=== PATIENT | male | born 1980 | race Caucasian/White ===

== ENCOUNTER 2018-07-16 18:22 | Emergency (ER) | payer SELFPAY ==
[~2018-07-16] VITALS: Ht 175.3 cm; Wt 79.4 kg
--- OUTSIDE RECORDS SUMMARY | 2018-07-16 18:25 | XMS REPORT | Clinical Summary ---
Author Author [facility] Organization [facility] Address Unknown Phone Unavailable Care Team Providers Care Gas Transfer Operator Name Role Phone Asked, No Pcp PCP Unavailable Allergies No Known Allergies Medications End Date Status Medication Sig Dispensed Refills Start Date 07/09/2018 acetaminophen-codeine Take 1-2 20 tablet 0 (TYLENOL WITH CODEINE #3) tablets by 9 300-30 mg per tablet mouth every 6 (six) hours as needed for moderate pain for up to 5 days. 07/11/2018 acyclovir (ZOVIRAX) 400 Take 2 70 tablet 0 MG tablet tablets (800 9 mg total) by mouth 5 (five) times a day for 7 days. 07/09/2018 methylPREDNISolone follow 21 tablet 0 (MEDROL DOSEPAK) 4 mg package 9 tablet directions 07/11/2018 sulfamethoxazole-trimetho Take 1 tablet 14 tablet 0 prim (BACTRIM DS) 800-160 by mouth 2 9 mg per tablet (two) times a day for 7 days. smx-tmp DS (BACTRIM) 800-160 mg tabs (1tab q12 D10) Active Problems Not on file Encounters Care Team Description Date Type Specialty David Bhakta MD Herpes zoster without complication (Primary Dx); Visit for wound check 07/04/2018 Emergency Emergency Medicine 07/04/2018 Travel after 07/15/2017 Social History Date Tobacco Use Types Packs/Day Years Used Never Smoker Smokeless Tobacco: Never Used Alcohol Use Drinks/Week oz/Week Comments No Alcohol Habits Answer Date Recorded How often do you have a drink containing alcohol? Never 07/04/2018 How many drinks containing alcohol do you have on Not asked a typical day when you are drinking? How often do you have six or more drinks on one Not asked occasion? Sex Assigned at Date Recorded Not on file Industry Job Start Date Occupation Not on file Not on file Not on file Travel End Travel History Travel Start No recent travel history available. Last Filed Vital Signs Time Taken Vital Sign Reading 07/04/2018 11:00 AM VAULT MANAGER Blood Pressure 126/79 07/04/2018 11:00 AM VAULT MANAGER Pulse 77 07/04/2018 11:00 AM VAULT MANAGER Temperature 37 C (98.6 F) 07/04/2018 11:00 AM VAULT MANAGER Respiratory Rate 18 07/04/2018 11:00 AM VAULT MANAGER Oxygen Saturation 100% - Inhaled Oxygen - Concentration 07/04/2018 10:56 AM VAULT MANAGER Weight 79.4 kg (175 lb) 07/04/2018 10:56 AM VAULT MANAGER Height 172.7 cm (5' 8") 07/04/2018 10:56 AM VAULT MANAGER Body Mass Index 26.61 Plan of Treatment Not on file Results Not on fileafter 07/15/2017 Advance Directives Patient has advance care planning documents on file. For more information, [facility] contact: Nickolas Brown [address] [place] [address]
--- OUTSIDE RECORDS SUMMARY | 2018-07-16 18:26 | XMS REPORT | Summary of Care ---
Author Author [facility] Organization [facility] Address Unknown Phone Unavailable Encounter RORO Lund(AARTI) [id number] Date(s): 11/13/16 - 11/13/16 [facility] [address] [place] [address]- [phone] Discharge Diagnosis: Dental cavity Discharge Diagnosis: Pain, dental Discharge Disposition: Home or Self Care Attending Physician: Justin Haas MD Vital Signs Most recent to 1 2 oldest [Reference Range]: Height 175.26 cm (11/13/16 6:30 PM) Temperature Oral 98.9 DegF 98.6 DegF [96.4-99.1 DegF] (11/13/16 7:21 PM) (11/13/16 6:30 PM) Blood Pressure 154/97 mmHg [90-140/60-90 mmHg] *HI* (11/13/16 6:30 PM) Systolic Blood 158 mmHg Pressure [90-140 *HI* mmHg] (11/13/16 7:21 PM) Diastolic Blood 94 mmHg Pressure [60-90 *HI* mmHg] (11/13/16 7:21 PM) Respiratory Rate 18 BRMIN 16 BRMIN [14-20 BRMIN] (11/13/16 7:21 PM) (11/13/16 6:30 PM) Peripheral Pulse 80 bpm 78 bpm Rate [60-100 bpm] (11/13/16 7:21 PM) (11/13/16 6:30 PM) Weight 72.727 kg (11/13/16 6:30 PM) Body Mass Index 23.68 m2 (11/13/16 6:30 PM) Problem List No data available for this section Allergies, Adverse Reactions, Alerts Substance Reaction Severity Status NKDA Active Medications [place] 10/325 oral tablet 1 tab, Route: PO, Drug Form: TAB, Dosing Weight 72.727, kg, ONCE, Start date: 18:49:00 CDT, Stop date: 11/13/16 18:49:00 CDT Notes: Do not exceed 4gm/day of acetaminophen. (Same as: [place] 325/10) Start Date: 11/13/16 Stop Date: 11/13/16 Status: Completed penicillin V potassium 500 mg oral tablet 500 mg=1 tab, PO, Q6H, X 7 day, # 28 tab, 0 Refill(s) Start Date: 11/13/16 Stop Date: 11/20/16 Status: Ordered Tylenol with Codeine #3 oral tablet 1 - 2 tab, PO, Q4H, PRN Pain, X 5 day, # 24 tab, 0 Refill(s) Start Date: 11/13/16 Stop Date: 11/18/16 Status: Ordered Zofran ODT 4 mg, 1 tab, Route: PO, Drug form: TABDIS, ONCE, Dosing Weight 72.727, kg, Prior ity: STAT, Start date: 11/13/16 18:50:00 CDT, Stop date: 11/13/16 18:50:00 CDT Notes: (Same as: Zofran ODT) Start Date: 11/13/16 Stop Date: 11/13/16 Status: Completed Results RAPID Most recent to 1 oldest [Reference Range]: Grp A Strep Scr Negative [Negative] (11/13/16 7:13 PM) VIRAL - SEROLOGY Most recent to 1 oldest [Reference Range]: Influ A [Negative] Negative (11/13/16 7:13 PM) Influ B [Negative] Negative (11/13/16 7:13 PM) Immunizations No data available for this section Procedures No data available for this section Social History Social History Type Response Smoking Status Never smoker; Exposure to Tobacco Smoke None; Cigarette Smoking Last 365 Days No; Reg Smoking Cessation Counseling No Assessment and Plan No data available for this section
--- OUTSIDE RECORDS SUMMARY | 2018-07-16 18:26 | XMS REPORT | Continuity of Care Document ---
Author Author [facility] Address Unknown Phone Unavailable Problems Problem Status Onset Date Classification Date Reported Comments Source Discharge Diagnosis: Acute lumbar myofascial strain 06/01/2017 06/04/2017 [facility] LOWER BACK PAIN Active 06/01/2017 [facility] Discharge Diagnosis: Dental cavity 11/13/2016 11/16/2016 [facility] Discharge Diagnosis: Pain, dental 11/13/2016 11/16/2016 [facility] CP/THROAT PAIN Active 11/13/2016 [facility] PANCREATIC MASS Active 03/18/2012 [facility] CHEST PAIN/ FLANK PAIN Active 03/03/2012 [facility] Medications Medication Details Route Status Patient Instructions Ordering Provider Order Date Source Motrin 600 mg oral tablet 600 mg=1 tab, PO, Q6H, PRN Pain, take with food, X 5 day, # 20 tab, 0 Refill(s) Active 06/01/2017 [facility] tramadol hydrochloride 50 MG Oral Tablet [Ultram] 50 mg=1 tab, PO, Q4H, PRN pain, No driving while under the influence of this medication, X 5 day, # 30 tab, 0 Refill(s) Active 06/01/2017 [facility] {21 (Methylprednisolone 4 MG Oral Tablet [Medrol]) } Pack [Medrol Dosepak] See Instructions, PO, Take by mouth as directed on label., # 1 Pack, 0 Refill(s) Active 06/01/2017 [facility] Ketorolac 60 mg, Route: IM, Drug form: INJ, ONCE, Dosing Weight 75, kg, Priority: STAT, Start date: 06/01/17 15:31:00 SYSTEMS PROGRAM MANAGER, Stop date: 06/01/17 15:31:00 SYSTEMS PROGRAM MANAGER Inactive 06/01/2017 [facility] Acetaminophen 300 MG / Codeine Phosphate 30 MG Oral Tablet [Tylenol with Codeine #3] 1 - 2 tab, PO, Q4H, PRN Pain, X 5 day, # 24 tab, 0 Refill(s) Active 11/14/2016 [facility] Penicillin V Potassium 500 MG Oral Tablet 500 mg=1 tab, PO, Q6H, X 7 day, # 28 tab, 0 Refill(s) Active 11/14/2016 [facility] Zofran ODT 4 mg, 1 tab, Route: PO, Drug form: TABDIS, ONCE, Dosing Weight 72.727, kg, Priority: STAT, Start date: 11/13/16 18:50:00 CDT, Stop date: 11/13/16 18:50:00 CDTNotes: (Same as: Zofran ODT) Inactive 11/13/2016 [facility] Acetaminophen 325 MG / Hydrocodone Bitartrate 10 MG Oral Tablet [[place] 10/325] 1 tab, Route: PO, Drug Form: TAB, Dosing Weight 72.727, kg, ONCE, Start date: 11/13/16 18:49:00 CDT, Stop date: 11/13/16 18:49:00 CDTNotes: Do not exceed 4gm/day of acetaminophen. (Same as: [place] 325/10) Inactive 11/13/2016 [facility] Phenergan 12.5 mg oral tablet 12.5 mg, 1 tab, PO, Q4H, PRN, 30 tab, Nausea & Vomiting, Substitution Allowed, TAB PO Active [place] 03/03/2012 [facility] [place] 7.5/325 oral tablet 1-2 tab, PO, Q4-6H, PRN, 30 tab, Pain, Substitution Allowed, Maintenance PO Active [place] 03/03/2012 [facility] Phenergan 12.5 mg oral tablet 12.5 mg, 1 tab, PO, Q4H, PRN, 60 tab, Nausea & Vomiting, Substitution Allowed, TAB PO No Longer Active [place] 03/03/2012 [facility] [place] 7.5/325 oral tablet 1-2 tab, PO, Q4-6H, PRN, 30 tab, Pain, Substitution Allowed, Maintenance PO No Longer Active [place] 03/03/2012 [facility] Phenergan 12.5 mg, Route: IVPB, ONCE, Dosing Weight 69.091, kg, Priority: STAT, Start date: 03/03/12 16:24:00, Stop date: 03/03/12 16:24:00 IVPB No Longer Active [place] 03/03/2012 [facility] morphine Sulfate 4 mg, Route: IVP, ONCE, Dosing Weight 69.091, kg, Priority: STAT, Start date: 03/03/12 16:23:00, Stop date: 03/03/12 16:23:00 IVP No Longer Active [place] 03/03/2012 [facility] hydromorphone 1 mg, Route: IV, ONCE, Dosing Weight 69.091, kg, Start date: 03/03/12 15:15:00, Stop date: 03/03/12 15:15:00 IV No Longer Active [place] 03/03/2012 [facility] ondansetron 4 mg, 2 mL, Route: IVP, Drug form: INJ, ONCE, Dosing Weight 69.091, kg, Priority: STAT, Start date: 03/03/12 13:12:00, Stop date: 03/03/12 13:12:00 IVP No Longer Active [place] 03/03/2012 [facility] famotidine 20 mg, 2 mL, Route: IVP, Drug form: INJ, ONCE, Dosing Weight 69.091, kg, Priority: STAT, Start date: 03/03/12 13:12:00, Stop date: 03/03/12 13:12:00 IVP No Longer Active [place] 03/03/2012 [facility] morphine Sulfate 4 mg, 2 mL, Route: IVP, Drug form: INJ, ONCE, Dosing Weight 69.091, kg, Priority: STAT, Start date: 03/03/12 13:12:00, Stop date: 03/03/12 13:12:00 IVP No Longer Active [place] 03/03/2012 [facility] Saline Flush 0.9% 5 ml, Route: IVP, Drug Form: INJ, Dosing Weight 69.091, kg, PRN, PRN Line Flush, Start date: 03/03/12 13:12:00, Duration: 24 hr, Stop date: 03/04/12 13:11:00 IVP No Longer Active [place] 03/03/2012 [facility] Allergies, Adverse Reactions, Alerts Substance Category Reaction Severity Reaction type Status Date Reported Comments Source Immunizations Immunization Date Given Site Status Last Updated Comments Source Results Order Name Results Value Reference Range Date Interpretation Comments Source RAPID Grp A Strep Scr Negative (11/13/16 7:13 PM) Negative 11/14/2016 [facility] VIRAL - SEROLOGY Influ A Negative (11/13/16 7:13 PM) Negative 11/14/2016 [facility] VIRAL - SEROLOGY Influ B Negative (11/13/16 7:13 PM) Negative 11/14/2016 [facility] CHEMISTRY Lipase Lvl 181 unit/L 73 - 393 03/03/2012 Normal [facility] CHEMISTRY AGAP 11.8 meq/L 10.0 - 20.0 03/03/2012 Normal [facility] CHEMISTRY B/C Ratio 11 6 - 25 03/03/2012 Normal [facility] CHEMISTRY A/G Ratio 1.2 0.7 - 1.6 03/03/2012 Normal [facility] CHEMISTRY Globulin 3.0 g/dL 2.0 - 4.0 03/03/2012 Normal [facility] CHEMISTRY Chloride Lvl 109 meq/L 95 - 109 03/03/2012 Normal [facility] CHEMISTRY Potassium Lvl 3.8 meq/L 3.5 - 5.1 03/03/2012 Normal [facility] CHEMISTRY CO2 27 meq/L 24 - 32 03/03/2012 Normal [facility] CHEMISTRY Albumin Lvl 3.6 g/dL 3.5 - 5.0 03/03/2012 Normal [facility] CHEMISTRY Calcium Lvl 8.5 mg/dL 8.5 - 10.5 03/03/2012 Normal [facility] CHEMISTRY Sodium Lvl 144 meq/L 135 - 145 03/03/2012 Normal [facility] CHEMISTRY Creatinine Lvl 1.0 mg/dL 0.5 - 1.4 03/03/2012 Normal [facility] CHEMISTRY BUN 11 mg/dL 7 - 22 03/03/2012 Normal [facility] CHEMISTRY Glucose Lvl 100 mg/dL 70 - 99 03/03/2012 [place] 1Interpretive Data: Adult reference range values reflect the clinical guidelines of the [place] [employer]. [facility] CHEMISTRY ALT 26 unit/L 0 - 65 03/03/2012 Normal [facility] CHEMISTRY Total Protein 6.6 g/dL 6.4 - 8.4 03/03/2012 Normal [facility] CHEMISTRY AST 9 unit/L 0 - 37 03/03/2012 Normal [facility] CHEMISTRY Alk Phos 61 unit/L 39 - 136 03/03/2012 Normal [facility] CHEMISTRY Bili Total 0.1 mg/dL 0.2 - 1.3 03/03/2012 LOW [facility] HEMATOLOGY MCHC 33.4 g/dL 32.0 - 36.0 03/03/2012 Normal [facility] HEMATOLOGY RDW 12.1 % 11.5 - 14.5 03/03/2012 Normal [facility] HEMATOLOGY Platelet 329 K/CMM 133 - 450 03/03/2012 Normal [facility] HEMATOLOGY MPV 8.0 fL 7.4 - 10.4 03/03/2012 Normal [facility] HEMATOLOGY MCH 33.2 pg 27.0 - 31.0 03/03/2012 [facility] HEMATOLOGY MCV 99.4 fL 80.0 - 94.0 03/03/2012 [facility] HEMATOLOGY Hgb 13.2 g/dL 14.0 - 18.0 03/03/2012 LOW [facility] HEMATOLOGY Hct 39.6 % 42.0 - 54.0 03/03/2012 LOW [facility] HEMATOLOGY RBC 3.98 M/CMM 4.70 - 6.10 03/03/2012 [facility] HEMATOLOGY WBC 10.5 K/CMM 3.7 - 10.4 03/03/2012 [facility] HEMATOLOGY Lymphocytes # 4.6 K/CMM 1.0 - 5.5 03/03/2012 Normal [facility] HEMATOLOGY Eosinophils 1.3 % 0.0 - 4.0 03/03/2012 Normal [facility] HEMATOLOGY Segs-Bands # 5.0 K/CMM 1.5 - 8.1 03/03/2012 Normal [facility] HEMATOLOGY Basophils 0.7 % 0.0 - 1.0 03/03/2012 Normal [facility] HEMATOLOGY Lymphocytes 44.0 % 20.0 - 40.0 03/03/2012 [facility] HEMATOLOGY Segs 47.3 % 45.0 - 75.0 03/03/2012 Normal [facility] HEMATOLOGY Monocytes 6.7 % 2.0 - 12.0 03/03/2012 Normal [facility] HEMATOLOGY Monocytes # 0.7 K/CMM 0.0 - 0.8 03/03/2012 Normal [facility] HEMATOLOGY Eosinophils # 0.1 K/CMM 0.0 - 0.5 03/03/2012 Normal [facility] HEMATOLOGY Basophils # 0.1 K/CMM 0.0 - 0.2 03/03/2012 [facility] URINALYSIS UA Urobilinogen <=1.0 mg/dL
*NA*
(03/03/2012 13:13:00) <sup> </sup> 0.1 - 1.0 03/03/2012 [facility] URINALYSIS UA Color Ltyellow 03/03/2012 [facility] URINALYSIS UA Sq Epi None Seen 03/03/2012 [facility] URINALYSIS UA WBC 17 /HPF 0 - 5 03/03/2012 HI [facility] URINALYSIS UA RBC 15 /HPF 0 - 2 03/03/2012 HI [facility] URINALYSIS UA Blood Large *ABN* (03/03/2012 13:13:00) Negative 03/03/2012 ABN [facility] URINALYSIS UA Nitrite Negative (03/03/2012 13:13:00) Negative 03/03/2012 Normal [facility] URINALYSIS UA Leuk Est Trace *ABN* (03/03/2012 13:13:00) Negative 03/03/2012 ABN [facility] URINALYSIS UA Ketones Negative mg/dL *NA* (03/03/2012 13:13:00) Negative 03/03/2012 NA [facility] URINALYSIS UA Bili Negative *NA* (03/03/2012 13:13:00) Negative 03/03/2012 NA [facility] URINALYSIS UA Spec Grav 1.013 <=1.030 03/03/2012 Normal [facility] URINALYSIS UA Turbidity Clear (03/03/2012 13:13:00) Clear 03/03/2012 Normal [facility] URINALYSIS UA pH 5.0 5.0 - 8.0 03/03/2012 Normal [facility] URINALYSIS UA Protein Negative mg/dL (03/03/2012 13:13:00) Negative 03/03/2012 Normal [facility] URINALYSIS UA Glucose Negative mg/dL *NA* (03/03/2012 13:13:00) Negative 03/03/2012 NA [facility] Vital Signs Vital Sign Value Date Comments Source Respitory Rate 17 06/01/2017 [facility] Heart Rate 82 06/01/2017 [facility] Systolic (mm Hg) 135 06/01/2017 [facility] Diastolic (mm Hg) 85 06/01/2017 [facility] Heart Rate 74 06/01/2017 [facility] Respitory Rate 18 06/01/2017 [facility] Systolic (mm Hg) 115 06/01/2017 [facility] Diastolic (mm Hg) 75 06/01/2017 [facility] Temperature Oral (F) 98.3 F 06/01/2017 [facility] Height 175.26 cm 06/01/2017 [facility] Weight 75 06/01/2017 [facility] BMI Calculated 24.42 06/01/2017 [facility] Diastolic (mm Hg) 94 11/14/2016 [facility] Respitory Rate 18 11/14/2016 [facility] Systolic (mm Hg) 158 11/14/2016 [facility] Temperature Oral (F) 98.9 F 11/14/2016 [facility] Heart Rate 80 11/14/2016 [facility] BMI Calculated 23.68 11/13/2016 [facility] Weight 72.727 11/13/2016 [facility] Heart Rate 78 11/13/2016 [facility] Height 175.26 cm 11/13/2016 [facility] Temperature Oral (F) 98.6 F 11/13/2016 [facility] Respitory Rate 16 11/13/2016 [facility] Systolic (mm Hg) 154 11/13/2016 [facility] Diastolic (mm Hg) 97 11/13/2016 [facility] Weight 69.091 03/03/2012 [facility] Height 170.18 cm 03/03/2012 [facility] Encounters Location Location Details Encounter Type Encounter Number Reason For Visit Attending Provider ADM Date DC Date Status Source [facility] Emergency [id number] CHEST PAIN/ FLANK 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
--- OUTSIDE RECORDS SUMMARY | 2018-07-16 18:26 | XMS REPORT | CCD ---
Author Author Auto Generated Organization [facility] Address Unknown Phone Unavailable Care Team Providers Care Honing Machine Operator Semiautomatic Name Role Phone Katie Todd CP Allergies, Adverse Reactions, Alerts Substance Reaction Status NKDA Active Medications Medication Instructions Start Date End Date Status Phenergan 12.5 mg 12.5 mg, 1 tab, PO, Q4H, PRN, 60 03/03/2012 03/03/2012 Discontinued oral tablet tab, Nausea & Vomiting, Substitution Allowed, TAB Phenergan 12.5 mg 12.5 mg, 1 tab, PO, Q4H, PRN, 30 03/03/2012 Ordered oral tablet tab, Nausea & Vomiting, Substitution Allowed, TAB [place] 7.5/325 oral 1-2 tab, PO, Q4-6H, PRN, 30 tab, 03/03/2012 03/08/2012 Ordered tablet Pain, Substitution Allowed, Maintenance [place] 7.5/325 oral 1-2 tab, PO, Q4-6H, PRN, 30 tab, 03/03/2012 03/03/2012 Discontinued tablet Pain, Substitution Allowed, Maintenance hydromorphone 1 mg, Route: IV, ONCE, Dosing 03/03/2012 03/03/2012 Completed Weight 69.091, kg, Start date: 03/03/12 15:15:00, Stop date: 03/03/12 15:15:00 Phenergan 12.5 mg, Route: IVPB, ONCE, Dosing 03/03/2012 03/03/2012 Completed Weight 69.091, kg, Priority: STAT, Start date: 03/03/12 16:24:00, Stop date: 03/03/12 16:24:00 morphine Sulfate 4 mg, Route: IVP, ONCE, Dosing 03/03/2012 03/03/2012 Completed Weight 69.091, kg, Priority: STAT, Start date: 03/03/12 16:23:00, Stop date: 03/03/12 16:23:00 ondansetron 4 mg, 2 mL, Route: IVP, Drug form: 03/03/2012 03/03/2012 Completed INJ, ONCE, Dosing Weight 69.091, kg, Priority: STAT, Start date: 03/03/12 13:12:00, Stop date: 03/03/12 13:12:00 famotidine 20 mg, 2 mL, Route: IVP, Drug form: 03/03/2012 03/03/2012 Completed INJ, ONCE, Dosing Weight 69.091, kg, Priority: STAT, Start date: 03/03/12 13:12:00, Stop date: 03/03/12 13:12:00 morphine Sulfate 4 mg, 2 mL, Route: IVP, Drug form: 03/03/2012 03/03/2012 Completed INJ, ONCE, Dosing Weight 69.091, kg, Priority: STAT, Start date: 03/03/12 13:12:00, Stop date: 03/03/12 13:12:00 Saline Flush 0.9% 5 ml, Route: IVP, Drug Form: INJ, 03/03/2012 03/04/2012 Discontinued Dosing Weight 69.091, kg, PRN, PRN Line Flush, Start date: 03/03/12 13:12:00, Duration: 24 hr, Stop date: 03/04/12 13:11:00 Vital Signs Most recent to oldest [Reference Range]: 1 Height 170.18 cm (03/03/2012 12:04:00) Weight 69.091 kg (03/03/2012 12:04:00) Results URINALYSIS Most recent to oldest [Reference Range]: 1 UA Turbidity [Clear] Clear (03/03/2012 13:13:00) UA Color Ltyellow *NA* (03/03/2012 13:13:00) UA pH [5.0-8.0] 5.0 (03/03/2012 13:13:00) UA Spec Grav [<=1.030] 1.013 (03/03/2012 13:13:00) UA Glucose [Negative mg/dL] Negative mg/dL *NA* (03/03/2012 13:13:00) UA Blood [Negative] Large *ABN* (03/03/2012 13:13:00) UA Ketones [Negative mg/dL] Negative mg/dL *NA* (03/03/2012 13:13:00) UA Protein [Negative mg/dL] Negative mg/dL (03/03/2012 13:13:00) UA Urobilinogen [0.1-1.0 mg/dL] <=1.0 mg/dL *NA* (03/03/2012 13:13:00) UA Bili [Negative] Negative *NA* (03/03/2012 13:13:00) UA Leuk Est [Negative] Trace *ABN* (03/03/2012 13:13:00) UA Nitrite [Negative] Negative (03/03/2012 13:13:00) UA WBC [0-5 /HPF] 17 /HPF *HI* (03/03/2012 13:13:00) UA RBC [0-2 /HPF] 15 /HPF *HI* (03/03/2012 13:13:00) UA Sq Epi None Seen *NA* (03/03/2012 13:13:00) CHEMISTRY Most recent to oldest [Reference Range]: 1 Sodium Lvl [135-145 mEq/L] 144 mEq/L (03/03/2012 13:13:00) Potassium Lvl [3.5-5.1 mEq/L] 3.8 mEq/L (03/03/2012 13:13:00) Chloride Lvl [95-109 mEq/L] 109 mEq/L (03/03/2012 13:13:00) CO2 [24-32 mEq/L] 27 mEq/L (03/03/2012 13:13:00) AGAP [10.0-20.0 mEq/L] 11.8 mEq/L (03/03/2012 13:13:00) Creatinine Lvl [0.5-1.4 mg/dL] 1.0 mg/dL (03/03/2012 13:13:00) BUN [7-22 mg/dL] 11 mg/dL (03/03/2012 13:13:00) B/C Ratio [6-25] 11 (03/03/2012 13:13:00) Glucose Lvl [70-99 mg/dL] 100 mg/dL 1 *HI* (03/03/2012 13:13:00) Total Protein [6.4-8.4 g/dL] 6.6 g/dL (03/03/2012 13:13:00) Albumin Lvl [3.5-5.0 g/dL] 3.6 g/dL (03/03/2012 13:13:00) Globulin [2.0-4.0 g/dL] 3.0 g/dL (03/03/2012 13:13:00) A/G Ratio [0.7-1.6] 1.2 (03/03/2012 13:13:00) Calcium Lvl [8.5-10.5 mg/dL] 8.5 mg/dL (03/03/2012 13:13:00) ALT [0-65 unit/L] 26 unit/L (03/03/2012 13:13:00) AST [0-37 unit/L] 9 unit/L (03/03/2012 13:13:00) Alk Phos [39-136 unit/L] 61 unit/L (03/03/2012 13:13:00) Bili Total [0.2-1.3 mg/dL] 0.1 mg/dL *LOW* (03/03/2012 13:13:00) Lipase Lvl [73-393 unit/L] 181 unit/L (03/03/2012 13:13:00) 1Interpretive Data: Adult reference range values reflect the clinical guidelines of the [place] [employer]. HEMATOLOGY Most recent to oldest [Reference Range]: 1 WBC [3.7-10.4 K/CMM] 10.5 K/CMM *HI* (03/03/2012 13:13:00) RBC [4.70-6.10 M/CMM] 3.98 M/CMM *LOW* (03/03/2012 13:13:00) Hgb [14.0-18.0 g/dL] 13.2 g/dL *LOW* (03/03/2012 13:13:00) Hct [42.0-54.0 %] 39.6 % *LOW* (03/03/2012 13:13:00) MCV [80.0-94.0 fL] 99.4 fL *HI* (03/03/2012 13:13:00) MCH [27.0-31.0 pg] 33.2 pg *HI* (03/03/2012 13:13:00) MCHC [32.0-36.0 g/dL] 33.4 g/dL (03/03/2012 13:13:00) RDW [11.5-14.5 %] 12.1 % (03/03/2012 13:13:00) Platelet [133-450 K/CMM] 329 K/CMM (03/03/2012 13:13:00) MPV [7.4-10.4 fL] 8.0 fL (03/03/2012 13:13:00) Segs [45.0-75.0 %] 47.3 % (03/03/2012 13:13:00) Lymphocytes [20.0-40.0 %] 44.0 % *HI* (03/03/2012 13:13:00) Monocytes [2.0-12.0 %] 6.7 % (03/03/2012 13:13:00) Eosinophils [0.0-4.0 %] 1.3 % (03/03/2012 13:13:00) Basophils [0.0-1.0 %] 0.7 % (03/03/2012 13:13:00) Segs-Bands # [1.5-8.1 K/CMM] 5.0 K/CMM (03/03/2012 13:13:00) Lymphocytes # [1.0-5.5 K/CMM] 4.6 K/CMM (03/03/2012 13:13:00) Monocytes # [0.0-0.8 K/CMM] 0.7 K/CMM (03/03/2012 13:13:00) Eosinophils # [0.0-0.5 K/CMM] 0.1 K/CMM (03/03/2012 13:13:00) Basophils # [0.0-0.2 K/CMM] 0.1 K/CMM (03/03/2012 13:13:00)
--- OUTSIDE RECORDS SUMMARY | 2018-07-16 18:26 | XMS REPORT | Summary of Care ---
Author Author [facility] Organization [facility] Address Unknown Phone Unavailable Encounter RORO Lund(AARTI) [id number] Date(s): 06/01/17 - 06/01/17 [facility] [address] [place] [address]- [phone] Discharge Diagnosis: Acute lumbar myofascial strain Discharge Disposition: Home or Self Care Attending Physician: Yaw Black DO Vital Signs Most recent to 1 2 oldest [Reference Range]: Height 175.26 cm (06/01/17 11:48 AM) Temperature Oral 98.3 DegF [96.4-99.1 DegF] (06/01/17 11:48 AM) Blood Pressure 135/85 mmHg 115/75 mmHg [90-140/60-90 mmHg] (06/01/17 3:38 PM) (06/01/17 11:48 AM) Respiratory Rate 17 BRMIN 18 BRMIN [14-20 BRMIN] (06/01/17 3:38 PM) (06/01/17 11:48 AM) Peripheral Pulse 82 bpm 74 bpm Rate [60-100 bpm] (06/01/17 3:38 PM) (06/01/17 11:48 AM) Weight 75 kg (06/01/17 11:48 AM) Body Mass Index 24.42 m2 (06/01/17 11:48 AM) Problem List No data available for this section Allergies, Adverse Reactions, Alerts Substance Reaction Severity Status NKDA Active Medications ketOROLAC 60 mg, Route: IM, Drug form: INJ, ONCE, Dosing Weight 75, kg, Priority: STAT, St art date: 06/01/17 15:31:00 ANALYTICAL CONSULTANT, Stop date: 06/01/17 15:31:00 ANALYTICAL CONSULTANT Start Date: 06/01/17 Stop Date: 06/01/17 Status: Completed Medrol Dosepak 4 mg oral tablet See Instructions, PO, Take by mouth as directed on label., # 1 Pack, 0 Refill(s) Start Date: 06/01/17 Stop Date: 06/07/17 Status: Ordered Motrin 600 mg oral tablet 600 mg=1 tab, PO, Q6H, PRN Pain, take with food, X 5 day, # 20 tab, 0 Refill(s) Start Date: 06/01/17 Stop Date: 06/06/17 Status: Ordered Ultram 50 mg oral tablet 50 mg=1 tab, PO, Q4H, PRN pain, No driving while under the influence of this med ication, X 5 day, # 30 tab, 0 Refill(s) Start Date: 06/01/17 Stop Date: 06/06/17 Status: Ordered Results No data available for this section Immunizations No data available for this section Procedures No data available for this section Social History Social History Type Response Smoking Status Never smoker; Exposure to Tobacco Smoke None; Cigarette Smoking Last 365 Days No; Reg Smoking Cessation Counseling No Assessment and Plan No data available for this section
[2018-07-16 19:03] VITALS: BP 125/85
== END 2018-07-16 19:12 | disposition home or self-care (01) ==
LOC: ER 18:22
DX: R10.30 Lower abdominal pain, unspecified (principal); L04.1 Acute lymphadenitis of trunk; L98.419 Non-pressure chronic ulcer of buttock with unspecified severity
CPT/HCPCS: 99282

== ENCOUNTER 2019-12-25 16:09 | Emergency (ER) | payer SELFPAY ==
[~2019-12-25] VITALS: Ht 175.3 cm; Wt 79.4 kg
[2019-12-25] MEDS ORDERED: SODIUM CHLORIDE 0.9% 1000ML 1,000 ML IV STA (16:20)
--- NOTE | 2019-12-25 16:23 | Emergency Department Note ---
History of Present Illnes History of Present Illness History of Present Illness This is a 39 year old male with 5 day h/o of diarrheal illness with epigastric pain. Denies f/c/n/v. Reports subtle cough and malaise . Historian: Patient Onset (how long ago): day(s) (5) Location: epigastric Radiation: Reports abdomen Severity: moderate Onset quality: gradual Duration (how long): day(s) (5) Timing of current episode: constant Progression: worsening Chronicity: recurrent Relieving factors: none Exacerbating factors: none Associated symptoms: Reports cough, Reports malaise Treatments prior to arrival: none Past Medical/Family History Physician Review I have reviewed the patient's past medical and family history. Any updates have been documented here. Past Medical History Recent Fever: No Clinical Suspicion of Infectio: Yes New/Unexplained Change in Ment: No Past Medical History: Kidney Stones, GERD Past Surgical History: None Social History Smoking Cessation: Never Smoker Alcohol Use: None Any Illegal Drug Use: No Other Last Tetanus: <10 YRS Review of Systems Review of Systems Constitutional: Reports malaise EENTM: Reports no symptoms Cardiovascular: Reports no symptoms Respiratory: Reports cough Gastrointestinal: Reports diarrhea Genitourinary: Reports no symptoms Musculoskeletal: Reports no symptoms Integumentary: Reports no symptoms Neurological: Reports no symptoms Psychological: Reports no symptoms Endocrine: Reports no symptoms Hematological/Lymphatic: Reports no symptoms Physical Exam Related Data Allergies: Coded Allergies: No Known Allergies (Unverified , 07/16/18) Triage Vital Signs Vital Signs Date Time Temp Pulse Resp B/P (MAP) Pulse Ox O2 Delivery O2 Flow Rate FiO2 12/25/19 16:26 98.2 92 21 124/87 97 Room Air Vital signs reviewed: Yes Physical Exam CONSTITUTIONAL Constitutional: Present well-developed, Present well-nourished HENT HENT: Present normocephalic, Present atraumatic, Present oropharynx clear/moist, Present nose normal HENT L/R: Present left ext ear normal, Present right ext ear normal EYES Eyes: Reports PERRL, Reports conjunctivae normal NECK Neck: Present ROM normal PULMONARY Pulmonary: Present effort normal, Present breath sounds normal CARDIOVASCULAR Cardiovascular: Present regular rhythm, Present heart sounds normal, Present capillary refill normal, Present normal rate GASTROINTESTINAL Abdominal: Present soft, Present tender (epigastric) GENITOURINARY Genitourinary: Present exam deferred SKIN Skin: Present warm, Present dry MUSCULOSKELETAL Musculoskeletal: Present ROM normal NEUROLOGICAL Neurological: Present alert, Present oriented x 3, Present no gross motor or sensory deficits PSYCHOLOGICAL Psychological: Present mood/affect normal, Present judgement normal Results Laboratory Lab results reviewed: Yes Laboratory comments Laboratory Tests Test 12/25/19 17:09 12/25/19 16:31 Urine Color Yellow (YELLOW) Urine Clarity Sl cloudy (CLEAR) Urine pH 6 (5 - 7) Urine Specific [place] 1.030 (1.010-1.025) Urine Protein Negative (NEGATIVE) Urine Glucose (UA) Negative (NEGATIVE) Urine Ketones Negative (NEGATIVE) Urine Blood Negative (NEGATIVE) Urine Nitrite Negative (NEGATIVE) Urine Bilirubin Negative (NEGATIVE) Urine Urobilinogen 0.2 mg/dL (0.2 - 1) Urine Leukocyte Esterase Negative (NEGATIVE) Urine RBC None /HPF (0-5) Urine WBC None /HPF (0-5) Urine Epithelial Cells None /LPF (NONE) Urine Bacteria Few /HPF (NONE) Urine Mucus Moderate (RARE) Urine Opiates Screen Negative (NEGATIVE) Urine Methadone Screen Negative (NEGATIVE) Urine Barbiturates Screen Negative (NEGATIVE) Urine Phencyclidine Screen Negative (NEGATIVE) Urine Amphetamines Screen Negative (NEGATIVE) Urine Methamphetamines Screen Negative (NEGATIVE) Urine Benzodiazepines Screen Negative (NEGATIVE) Urine Cocaine Screen Negative (NEGATIVE) Urine Cannabinoids Screen Negative (NEGATIVE) White Blood Count 10.56 x10e3/uL (4.8-10.8) Red Blood Count 5.27 x10e6/uL (4.3-5.7) Hemoglobin 16.1 g/dL (14.0-18.0) Hematocrit 48.8 % (38.2-49.6) Mean Corpuscular Volume 92.6 fL (81-99) Mean Corpuscular Hemoglobin 30.6 pg (28-32) Mean Corpuscular Hemoglobin Concent 33.0 g/dL (31-35) Red Cell Distribution Width 12.4 % (11.7-14.4) Platelet Count 346 x10e3/uL (140-360) Neutrophils (%) (Auto) 62.6 % (38.7-80.0) Lymphocytes (%) (Auto) 27.0 % (18.0-39.1) Monocytes (%) (Auto) 7.8 % (4.4-11.3) Eosinophils (%) (Auto) 1.2 % (0.0-6.0) Basophils (%) (Auto) 0.8 % (0.0-1.0) Neutrophils # (Auto) 6.6 (2.1-6.9) Lymphocytes # (Auto) 2.9 (1.0-3.2) Monocytes # (Auto) 0.8 (0.2-0.8) Eosinophils # (Auto) 0.1 (0.0-0.4) Basophils # (Auto) 0.1 (0.0-0.1) Absolute Immature Granulocyte (auto 0.06 x10e3/uL (0-0.1) Sodium Level 142 mmol/L (136-145) Potassium Level 3.7 mmol/L (3.5-5.1) Chloride Level 107 mmol/L (98-107) Carbon Dioxide Level 27 mmol/L (22-29) Anion Gap 11.7 mmol/L (8-16) Blood Urea Nitrogen 15 mg/dL (7-26) Creatinine 1.02 mg/dL (0.72-1.25) Estimat Glomerular Filtration Rate > 60 ML/MIN (60-) BUN/Creatinine Ratio 15 (6-25) Glucose Level 102 mg/dL (74-118) Calcium Level 9.7 mg/dL (8.4-10.2) Total Bilirubin 0.5 mg/dL (0.2-1.2) Aspartate Amino Transf (AST/SGOT) 20 IU/L (5-34) Alanine Aminotransferase (ALT/SGPT) 41 IU/L (0-55) Alkaline Phosphatase 61 IU/L (40-150) Creatine Kinase 163 IU/L (30-200) Creatine Kinase MB 0.70 ng/mL (0-5.0) Troponin I < 0.001 ng/mL (0-0.300) B-Type Natriuretic Peptide 19.6 pg/mL (0-100) Total Protein 7.6 g/dL (6.5-8.1) Albumin 3.9 g/dL (3.5-5.0) Globulin 3.7 g/dL (2.3-3.5) Albumin/Globulin Ratio 1.1 (0.8-2.0) Lipase 45 U/L (8-78) Imaging Imaging results reviewed: Yes Impressions [facility] [address] [address] Patient Name: TIN DOTSON MR #: [id number] : 1980 Age/Sex: 39/M Req #: [id number] Adm Physician: Ordered by: KARY SALINAS DO Report #: [id number] Location: ER Room/Bed: Procedure: [id number] CT/CT ABDOMEN/PELVIS W Exam Date: 12/25/19 Exam Time: 1745 REPORT STATUS: Signed EXAM: CT Chest, Abdomen and Pelvis WITH contrast INDICATION: Epigastric pain. COMPARISON: None. TECHNIQUE: Chest, abdomen and pelvis were scanned utilizing a multidetector helical scanner from the lung apex to the pubic symphysis after administration of IV contrast. Coronal and sagittal reformations were obtained. Routine protocol was performed. Scan was performed when during portal venous phase. IV CONTRAST: 100 mL of Isovue 370 ORAL CONTRAST: None COMPLICATIONS: None RADIATION DOSE: Total DLP: 1011.99 mGy*cm Estimated effective dose: (DLP x 0.015 x size factor) mSv CTDIvol has been reviewed. It is below the limits set by the Radiation Protocol Committee (RPC). Dose modulation, iterative reconstruction, and/or weight based adjustment of the mA/kV was utilized to reduce the radiation dose to as low as reasonably achievable. FINDINGS: LINES and TUBES: None. LUNGS AND AIRWAYS: The lungs are unremarkable. Airways are normal. There is mild bibasilar atelectasis. PLEURA: The pleural spaces are clear. HEART AND MEDIASTINUM: The thyroid gland is normal. No mediastinal, hilar or axillary lymphadenopathy. The heart is normal in size. There is no pericardial effusion. HEPATOBILIARY: No focal hepatic lesions. No biliary ductal dilation. GALLBLADDER: No radio-opaque stones or sludge. No wall thickening. SPLEEN: No splenomegaly. PANCREAS: No focal masses or ductal dilatation. ADRENALS: No adrenal nodules KIDNEYS/URETERS: Kidneys enhance symmetrically. No hydronephrosis. No cystic or solid mass lesions. No stones. GI TRACT: There is diverticulosis without evidence of active inflammation. No abnormal distention, wall thickening, or evidence of bowel obstruction. Appendix is normal. PELVIC ORGANS/BLADDER: Unremarkable. LYMPH NODES: No lymphadenopathy. VESSELS: Unremarkable. PERITONEUM / RETROPERITONEUM: No free air or fluid. BONES: Unremarkable. SOFT TISSUES: Unremarkable IMPRESSION: 1. No intrathoracic findings to explain the patient's symptoms were identified. 2. No intra-abdominal findings to explain the patient's symptoms are identified. Signed by: Roxie Spear MD on 12/25/2019 6:42 PM Dictated By: ROXIE SPEAR MD 41 Transcribed By: TED on 12/25/191841 COPY TO: KARY SALINAS DO~ Procedures 12 Lead ECG Interpretation ECG Interpretation : ECG: ECG 1 Oceanologist: Interpreted by ED physician Date: Dec 25, 2019 Time: 17:33 Prior ECG tracings: reviewed Rhythm: sinus rhythm Rate: normal BPM: 61 QRS axis: normal ST segments normal: Yes T waves normal: Yes Clinical Impression: normal ECG Assessment & Plan Medical Decision Making MDM 39 yom with presents with abdominal pain. CBC, CMP, EKG, , cardiac enzymes, UA and CTS ordered to r/o appendicitis, Acute coronary syndrome, COVID-19 infection diverticulitis, UTI, kidney stone, perforated viscus, obstruction, ischemia, and biliary pathology. COVID-19 suspected but testing deferred secondary to stable vital signs and high oxygen saturation with 100% on RA Assessment & Plan Final Impression: (1) Epigastric pain Depart Disposition: HOME, SELF-CARE Medications in the ED Sodium Chloride 1,000 ml @ 0 mls/hr Q0M STAT IV Last administered on 12/25/19at 17:04; Admin Dose 999 MLS/HR; Start 12/25/19 at 16:20; Stop 12/25/19 at 16:22; Status DC Sodium Chloride 50 ml @ STK-MED ONCE .ROUTE ; Start 12/25/19 at 16:38; Stop 12/25/19 at 16:33; Status DC Iopamidol 74,000 mg STK-MED ONCE INJ ; Start 12/25/19 at 16:38; Stop 12/25/19 at 16:33; Status DC Famotidine 20 mg NOW STAT IV Last administered on 12/25/19at 17:41; Admin Dose 20 MG; Start 12/25/19 at 17:04; Stop 12/25/19 at 17:08; Status DC Morphine Sulfate 4 mg ONCE ONCE IV Last administered on 12/25/19at 19:01; Admin Dose 4 MG; Start 12/25/19 at 18:30; Stop 12/25/19 at 18:33; Status DC Ondansetron HCl 4 mg NOW STAT IV Last administered on 12/25/19at 19:01; Admin Dose 4 MG; Start 12/25/19 at 18:30; Stop 12/25/19 at 18:33; Status DC KARY SALINAS DO Dec 25, 2019 16:23
[2019-12-25] MEDS ORDERED: IOPAMIDOL 370 MG/ML 200 ML INFUS..BTL INJ ONE (16:38)
[2019-12-25] MEDS ORDERED: SODIUM CHLORIDE 0.9% 50ML 50 ML ONE (16:38)
[2019-12-25 16:41] LABS: BASOPHILS # (AUTO) 0.1 (0.0-0.1); BASOPHILS % 0.8 % (0.0-1.0); EOSINOPHILS # (AUTO) 0.1 (0.0-0.4); EOSINOPHILS % 1.2 % (0.0-6.0); HEMATOCRIT 48.8 % (38.2-49.6); HEMOGLOBIN 16.1 g/dL (14.0-18.0); LYMPHOCYTES # (AUTO) 2.9 (1.0-3.2); MEAN CORPUSCULAR HEMOGLOBIN 30.6 pg (28-32); MEAN CORPUSCULAR VOLUME 92.6 fL (81-99); MONOCYTES # (AUTO) 0.8 (0.2-0.8); MONOCYTES % 7.8 % (4.4-11.3); NEUTROPHILS # (AUTO) 6.6 (2.1-6.9); NEUTROPHILS % 62.6 % (38.7-80.0); PLATELET COUNT 346 x10e3/uL (140-360); RED BLOOD COUNT 5.27 x10e6/uL (4.3-5.7); RED CELL DISTRIBUTION WIDTH 12.4 % (11.7-14.4)
[2019-12-25] MEDS ORDERED: FAMOTIDINE 20 MG/2 ML VIAL IV STA (17:04)
[2019-12-25 17:05] LABS: ALANINE AMINOTRANSFERASE 41 IU/L (0-55); ALBUMIN 3.9 g/dL (3.5-5.0); ALBUMIN/GLOBULIN RATIO 1.1 (0.8-2.0); ALKALINE PHOSPHATASE 61 IU/L (40-150); ANION GAP 11.7 mmol/L (8-16); BLOOD UREA NITROGEN 15 mg/dL (7-26); BUN/CREATININE RATIO 15 (6-25); CALCIUM 9.7 mg/dL (8.4-10.2); CARBON DIOXIDE 27 mmol/L (22-29); CHLORIDE 107 mmol/L (98-107); CREATINE KINASE 163 IU/L (30-200); CREATININE, SERUM 1.02 mg/dL (0.72-1.25); EST GLOMERULAR FILTRATION RATE > 60 ML/MIN (60-); GLUCOSE 102 mg/dL (74-118); LIPASE 45 U/L (8-78); POTASSIUM 3.7 mmol/L (3.5-5.1); SODIUM 142 mmol/L (136-145)
[2019-12-25 17:33] LABS: AMPHETAMINES SCREEN,URINE NEGATIVE (NEGATIVE); BENZODIAZEPINES SCREEN,URINE NEGATIVE (NEGATIVE); BILIRUBIN,URINE NEGATIVE (NEGATIVE); CLARITY,URINE SL CLOUDY (CLEAR); COLOR,URINE YELLOW (YELLOW); KETONES,URINE NEGATIVE (NEGATIVE); LEUKOCYTE ESTERASE ,URINE NEGATIVE (NEGATIVE); NITRITE,URINE NEGATIVE (NEGATIVE); PHENCYCLIDINE SCREEN,URINE NEGATIVE (NEGATIVE); PROTEIN,URINE DIPSTICK NEGATIVE (NEGATIVE); URINE UROBILINOGEN 0.2 mg/dL (0.2 - 1)
[2019-12-25 17:43] LABS: BACTERIA,URINE FEW /HPF; MUCUS,URINE MODERATE (RARE)
[2019-12-25] MEDS ORDERED: ONDANSETRON HCL INJ 2MG/ML 2ML 2 MG/ML VIAL IV STA (18:30)
[2019-12-25] MEDS ORDERED: MORPHINE SULFATE INJ 4 MG/ML INJ 1ML IV ONE (18:30)
--- NOTE | 2019-12-25 18:45 | Diagnostic Imaging Report ---
EXAM: CT Chest, Abdomen and Pelvis WITH contrast INDICATION: Epigastric pain. COMPARISON: None. TECHNIQUE: Chest, abdomen and pelvis were scanned utilizing a multidetector helical scanner from the lung apex to the pubic symphysis after administration of IV contrast. Coronal and sagittal reformations were obtained. Routine protocol was performed. Scan was performed when during portal venous phase. IV CONTRAST: 100 mL of Isovue 370 ORAL CONTRAST: None COMPLICATIONS: None RADIATION DOSE: Total DLP: 1011.99 mGy*cm Estimated effective dose: (DLP x 0.015 x size factor) mSv CTDIvol has been reviewed. It is below the limits set by the Radiation Protocol Committee (RPC). Dose modulation, iterative reconstruction, and/or weight based adjustment of the mA/kV was utilized to reduce the radiation dose to as low as reasonably achievable. FINDINGS: LINES and TUBES: None. LUNGS AND AIRWAYS: The lungs are unremarkable. Airways are normal. There is mild bibasilar atelectasis. PLEURA: The pleural spaces are clear. HEART AND MEDIASTINUM: The thyroid gland is normal. No mediastinal, hilar or axillary lymphadenopathy. The heart is normal in size. There is no pericardial effusion. HEPATOBILIARY: No focal hepatic lesions. No biliary ductal dilation. GALLBLADDER: No radio-opaque stones or sludge. No wall thickening. SPLEEN: No splenomegaly. PANCREAS: No focal masses or ductal dilatation. ADRENALS: No adrenal nodules KIDNEYS/URETERS: Kidneys enhance symmetrically. No hydronephrosis. No cystic or solid mass lesions. No stones. GI TRACT: There is diverticulosis without evidence of active inflammation. No abnormal distention, wall thickening, or evidence of bowel obstruction. Appendix is normal. PELVIC ORGANS/BLADDER: Unremarkable. LYMPH NODES: No lymphadenopathy. VESSELS: Unremarkable. PERITONEUM / RETROPERITONEUM: No free air or fluid. BONES: Unremarkable. SOFT TISSUES: Unremarkable IMPRESSION: 1. No intrathoracic findings to explain the patient's symptoms were identified. 2. No intra-abdominal findings to explain the patient's symptoms are identified. Signed by: Jeanmarie Stewart MD on 12/25/2019 6:42 PM
[2019-12-25 19:35] VITALS: BP 117/84
== END 2019-12-25 19:50 | disposition home or self-care (01) ==
LOC: ER 16:29
DX: R10.13 Epigastric pain (principal); R19.7 Diarrhea, unspecified; R05 Cough; R53.81 Other malaise; K21.9 Gastro-esophageal reflux disease without esophagitis
CPT/HCPCS: 36415; 71260; 74177; 80053; 80307; 81001; 82550; 82553; 83690; 83880; 84484; 85025; 93005; 99284; J2270; J2405; J7030; Q9967

== ENCOUNTER 2020-04-20 11:32 | Emergency (ER) | payer SELFPAY ==
[~2020-04-20] VITALS: Ht 175.3 cm; Wt 79.4 kg
[2020-04-20 11:53] LABS: CLARITY,URINE CLEAR (CLEAR); COLOR,URINE YELLOW (YELLOW)
[2020-04-20] MEDS ORDERED: KETOROLAC TROMETHAMINE 30 MG/ML VIAL IV STA (11:53)
[2020-04-20 11:54] LABS: BILIRUBIN,URINE NEGATIVE (NEGATIVE); KETONES,URINE NEGATIVE (NEGATIVE); LEUKOCYTE ESTERASE ,URINE NEGATIVE (NEGATIVE); NITRITE,URINE NEGATIVE (NEGATIVE); PROTEIN,URINE DIPSTICK NEGATIVE (NEGATIVE); URINE UROBILINOGEN 0.2 mg/dL (0.2 - 1)
[2020-04-20] MEDS ORDERED: CEFTRIAXONE SOD 1 GM/NS 50 ML 50 ML IV ONE (12:00)
[2020-04-20] MEDS ORDERED: KETOROLAC TROMETHAMINE 30 MG/ML VIAL ONE (12:02)
[2020-04-20 12:06] LABS: BASOPHILS # (AUTO) 0.1 (0.0-0.1); BASOPHILS % 0.7 % (0.0-1.0); EOSINOPHILS # (AUTO) 0.1 (0.0-0.4); EOSINOPHILS % 1.2 % (0.0-6.0); HEMATOCRIT 45.7 % (38.2-49.6); HEMOGLOBIN 15.3 g/dL (14.0-18.0); LYMPHOCYTES % 26.4 % (18.0-39.1); MEAN CORPUSCULAR HEMOGLOBIN 29.9 pg (28-32); MEAN CORPUSCULAR HGB CONC 33.5 g/dL (31-35); MEAN CORPUSCULAR VOLUME 89.3 fL (81-99); MONOCYTES # (AUTO) 0.6 (0.2-0.8); MONOCYTES % 7.7 % (4.4-11.3); NEUTROPHILS # (AUTO) 4.7 (2.1-6.9); NEUTROPHILS % 63.6 % (38.7-80.0); PLATELET COUNT 346 x10e3/uL (140-360); RED BLOOD COUNT 5.12 x10e6/uL (4.3-5.7); RED CELL DISTRIBUTION WIDTH 12.5 % (11.7-14.4)
[2020-04-20 12:06] LABS: BACTERIA,URINE FEW /HPF; EPITHELIAL CELLS,URINE FEW /LPF; RBC,URINE 0-5 /HPF (0-5); WBC,URINE (MAN) 0-5 /HPF (0-5)
[2020-04-20 12:07] LABS: MUCUS,URINE FEW (RARE)
[2020-04-20 12:23] LABS: ANION GAP 12.5 mmol/L (8-16); BLOOD UREA NITROGEN 15 mg/dL (7-26); BUN/CREATININE RATIO 17 (6-25); CALCIUM 8.8 mg/dL (8.4-10.2); CARBON DIOXIDE 21 mmol/L (22-29); CHLORIDE 107 mmol/L (98-107); CREATININE, SERUM 0.89 mg/dL (0.72-1.25); EST GLOMERULAR FILTRATION RATE > 60 ML/MIN (60-); GLUCOSE 147 mg/dL (74-118); POTASSIUM 3.5 mmol/L (3.5-5.1); SODIUM 137 mmol/L (136-145)
--- OUTSIDE RECORDS SUMMARY | 2020-04-20 12:27 | XMS REPORT | Clinical Summary ---
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 Never 07/04/2018 How many drinks containing alcohol do you have on No t asked a typical day when you are drinking? How often do you have six or more drinks on one Not asked occasion? 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
--- OUTSIDE RECORDS SUMMARY | 2020-04-20 12:27 | XMS REPORT | Continuity of Care Document ---
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 Role Phone [employer] Information [facility] Unavailable Un available Problems Problem Status Onset Date Classification Date Reported Comments Source Strain of muscle, fascia and tendon of l ower back, initial encounter 06/01/2017 06/04/2017 [facility] LOWER BACK PAIN Active 06/01/2017 [facility] Dental caries, unspecified 11/13/2016 11/16/2016 [facility] Other specified disorders of teeth and s upporting structures 11/13/2016 11/16/2016 [facility] CP/THROAT PAIN Active 11/13/2016 [facility] PANCREATIC MASS Active 03/18/2012 [facility] CHEST PAIN/ FLANK PAIN Active 03/03/2012 [facility] Medications Medication Details Route Status Patient Instructions Ordering Provider Order Date Source Motrin 600 mg oral tablet 600 mg = 1 tab, PO, Q6H, PRN Pain, take with food, X 5 day, # 20 tab, 0 Refill(s) Active 06/01/2017 [facility] tramadol hydrochloride 50 MG Oral Tablet [Ultram] 50 mg = 1 tab, PO, Q4H, PRN pain, No driving while under the influence of this medication, X 5 day, # 30 tab, 0 Refill(s) Active 06/01/2017 [facility] {21 (Methylprednisolone 4 MG Oral Tablet [Medrol]) } Pack [Medrol Dosepak] See Instructions, PO, Take by mouth as d irected on label., # 1 Pack, 0 Refill(s) Active 06/01/2017 [facility] Ketorolac 60 mg, Route: IM, Dr ug form: INJ, ONCE, Dosing Weight 75, kg, Priority: STAT, Start date: 06/01/17 15:31:00 [employer], Stop date: 06/01/17 15:31:00 [employer] INST[employer]ER Inactive 06/01/2017 [facility] Acetaminophen 300 MG / Codeine Phosphate 30 MG Oral Tablet [Tylenol with Codeine #3] 1 - 2 tab, PO, Q4H, PRN Pain, X 5 day, # 24 tab, 0 Refill(s) Active 11/14/2016 [facility] Penicillin V Potassium 500 MG Oral Tablet 500 mg = 1 tab, PO, Q6H, X 7 day, # 28 tab, 0 Refill(s) Active 11/14/2016 [facility] Zofran ODT Notes: (Same as: Zo hien ODT) Inactive 11/13/2016 [facility] Acetaminophen 325 MG / Hydrocodone Pratibha trate 10 MG Oral Tablet [[place] 10/325] Notes: Do not exceed 4gm/day of acetamin ophen. (Same as: [place] 325/10) Inactive 11/13/2016 [facility] Phenergan 12.5 mg oral tablet 12.5 mg, 1 tab, PO, Q4H, PRN, 30 tab, Nausea & Vomiting, Substitution Allowed, TAB PO Active [place] 03/03/2012 [facility] [place] 7.5/325 oral tablet 1-2 tab, PO, Q4-6H, PRN, 30 tab, Pain, Substitution Allowed, Maintenance PO Active Luis k 03/03/2012 [facility] Phenergan 12.5 mg oral tablet 12.5 mg, 1 tab, PO, Q4H, PRN, 60 tab, Nausea & Vomiting, Substitution Allowed, TAB PO No Longer Active [place] 03/03/2012 [facility] [place] 7.5/325 oral tablet 1-2 tab, PO, Q4-6H, PRN, 30 tab, Pain, Substitution Allowed, Maintenance PO No Longer Active [place] 03/03/2012 [facility] Phenergan 12.5 mg, Route: IVPB , ONCE, Dosing Weight 69.091, kg, Priority: STAT, Start date: 03/03/12 16:24:00, Stop date: 03/03/12 16:24:00 IVPB No Longer Active [place] 03/03/2012 [facility] morphine Sulfate 4 mg, Route: IVP, ONCE, Dosing Weight 69.091, kg, Priority: STAT, Start date: 03/03/12 16:23:00, Stop date: 03/03/12 16:23:00 IVP No Longer Active [place] 03/03/2012 [facility] hydromorphone 1 mg, Route: IV, ONCE, Dosing Weight 69.091, kg, Start date: 03/03/12 15:15:00, Stop date: 03/03/12 15:15:00 IV No Longer Active [place] 03/03 [facility] ondansetron 4 mg, 2 mL, Route: IVP, Drug form: INJ, ONCE, Dosing Weight 69.091, kg, Priority: STAT, Start date: 03/03/12 13:12:00, Stop date: 03/03/12 13:12:00 IVP No Longer Active [place] 03/03/2012 [facility] famotidine 20 mg, 2 mL, Route: IVP, Drug form: INJ, ONCE, Dosing Weight 69.091, kg, Priority: STAT, Start date: 03/03/12 13:12:00, Stop date: 03/03/12 13:12:00 IVP No Longer Active [place] 03/03/2012 [facility] morphine Sulfate 4 mg, 2 mL, R oute: IVP, Drug form: INJ, ONCE, Dosing Weight 69.091, kg, Priority: STAT, Start date: 03/03/12 13:12:00, Stop date: 03/03/12 13:12:00 IVP No Longer Active [place] 03/03/2012 [facility] Saline Flush 0.9% 5 ml, Route: IVP, Drug Form: INJ, Dosing Weight 69.091, kg, PRN, PRN Line Flush, Start date: 03/03/12 13:12:00, Duration: 24 hr, Stop date: 03/04/12 13:11:00 IVP No Longer Active [place] 03/03/2012 [facility] Allergies, Adverse Reactions, Alerts No Known Medication Allergies Immunizations No Data Provided for This Section Results Order Name Results Value Reference Range Date Interpretation Comments Source RAPID Grp A Strep Scr Negative (11/13/16 7:13 PM) Negative 11/14/2016 [facility] VIRAL - SEROLOGY Influ A Negative (11/13/16 7:13 PM) Negative 11/14/2016 [facility] VIRAL - SEROLOGY Influ B Negative (11/13/16 7:13 PM) Negative 11/14/2016 [facility] CHEMISTRY Lipase Lvl 181 73 - 393 03/03/2012 Normal [facility] CHEMISTRY AGAP 11.8 10.0 - 20.0 03/03/2012 Normal [facility] CHEMISTRY B/C Ratio 11 6 - 25 03/03/2012 Normal [facility] CHEMISTRY A/G Ratio 1.2 0.7 - 1.6 03/03/2012 Normal [facility] CHEMISTRY Globulin 3.0 2.0 - 4.0 03/03/2012 Normal [facility] CHEMISTRY Chloride Lvl 109 95 - 109 03/03/2012 Normal [facility] CHEMISTRY Potassium Lvl 3.8 3.5 - 5.1 03/03/2012 [facility] CHEMISTRY CO2 27 24 - 32 03/03/2012 Normal [facility] CHEMISTRY Albumin Lvl 3.6 3.5 - 5.0 03/03/2012 Normal [facility] CHEMISTRY Calcium Lvl 8.5 8.5 - 10.5 03/03/2012 Normal [facility] CHEMISTRY Sodium Lvl 144 135 - 145 03/03/2012 Normal [facility] CHEMISTRY Creatinine Lvl 1.0 0.5 - 1.4 03/03/2012 Normal [facility] CHEMISTRY BUN 11 7 - 22 03/03/2012 Normal [facility] CHEMISTRY Glucose Lvl 100 70 - 99 03/03/2012 [facility] <sup>1</sup>Interpretive Data: Adult ref erence range values reflect the clinical guidelines
of the [place] [employer]. [facility] CHEMISTRY ALT 26 0 - 65 03/03/2012 Normal [facility] CHEMISTRY Total Protein 6.6 6.4 - 8.4 03/03/2012 Normal [facility] CHEMISTRY AST 9 0 - 37 03/03/2012 Normal [facility] CHEMISTRY Alk Phos 61 39 - 136 03/03/2012 Normal [facility] CHEMISTRY Bili Total 0.1 0.2 - 1.3 03/03/2012 LOW [facility] HEMATOLOGY MCHC 33.4 32.0 - 36.0 03/03/2012 Normal [facility] HEMATOLOGY RDW 12.1 11.5 - 14.5 03/03/2012 Normal [facility] HEMATOLOGY Platelet 329 133 - 450 03/03/2012 Normal [facility] HEMATOLOGY MPV 8.0 7.4 - 10.4 03/03/2012 Normal [facility] HEMATOLOGY MCH 33.2 27.0 - 31.0 03/03/2012 HI [facility] HEMATOLOGY MCV 99.4 80.0 - 94.0 03/03/2012 HI [facility] HEMATOLOGY Hgb 13.2 14.0 - 18.0 03/03/2012 LOW [facility] HEMATOLOGY Hct 39.6 42.0 - 54.0 03/03/2012 LOW [facility] HEMATOLOGY RBC 3.98 4.70 - 6.10 03/03/2012 LOW [facility] HEMATOLOGY WBC 10.5 3.7 - 10.4 03/03/2012 [facility] HEMATOLOGY Lymphocytes # 4.6 1.0 - 5.5 03/03/2012 Normal [facility] HEMATOLOGY Eosinophils 1.3 0.0 - 4.0 03/03/2012 Normal [facility] HEMATOLOGY Segs-Bands # 5.0 1.5 - 8.1 03/03/2012 Normal [facility] HEMATOLOGY Basophils 0.7 0.0 - 1.0 03/03/2012 Normal [facility] HEMATOLOGY Lymphocytes 44.0 20.0 - 40.0 03/03/2012 [facility] HEMATOLOGY Segs 47.3 45.0 - 75.0 03/03/2012 Normal [facility] HEMATOLOGY Monocytes 6.7 2.0 - 12.0 03/03/2012 Normal [facility] HEMATOLOGY Monocytes # 0.7 0.0 - 0.8 03/03/2012 Normal [facility] HEMATOLOGY Eosinophils # 0.1 0.0 - 0.5 03/03/2012 Normal [facility] HEMATOLOGY Basophils # 0.1 0.0 - 0.2 03/03/2012 Normal [facility] URINALYSIS UA Urobilinogen 0.1 - 1.0 03/03/2012 [facility] URINALYSIS UA Color Ltyellow 03/03/2012 [facility] URINALYSIS UA Sq Epi None Seen 03/03/2012 [facility] URINALYSIS UA WBC 17 0 - 5 03/03/2012 [facility] URINALYSIS UA RBC 15 0 - 2 03/03/2012 [facility] URINALYSIS UA Blood Large *ABN* (03/03/2012 13:13:00) Negati ve 03/03/2012 [facility] URINALYSIS UA Nitrite Negat reba (03/03/2012 13:13:00) Negati ve 03/03/2012 Normal [facility] URINALYSIS UA Leuk Est Trace *ABN* (03/03/2012 13:13:00) Negati ve 03/03/2012 [facility] URINALYSIS UA Ketones Negat reba mg/dL *NA* (03/03/2012 13:13:00) Negati ve 03/03/2012 [facility] URINALYSIS UA Bili Negat reba *NA* (03/03/2012 13:13:00) Negati ve 03/03/2012 [facility] URINALYSIS UA Spec Grav 1.013 <=1.030 03/03/2012 Normal [facility] URINALYSIS UA Turbidity Clear (03/03/2012 13:13:00) Clear 03/03/2012 Normal [facility] URINALYSIS UA pH 5.0 5.0 - 8.0 03/03/2012 Normal [facility] URINALYSIS UA Protein Negat reba mg/dL (03/03/2012 13:13:00) Negati ve 03/03/2012 Normal [facility] URINALYSIS UA Glucose Negat reba mg/dL *NA* (03/03/2012 13:13:00) Negati ve 03/03/2012 NA [facility] Pathology Reports No Data Provided for This Section Diagnostic Reports No Data Provided for This Section Consultation Notes No Data Provided for This Section Discharge Summaries No Data Provided for This Section History and Physicals No Data Provided for This Section Vital Signs Vital Sign Value Date Comments Source Respitory Rate 17 06/01/2017 [facility] Heart Rate 82 06/01/2017 [facility] Systolic (mm Hg) 135 06/01/2017 [facility] Diastolic (mm Hg) 85 06/01/2017 [facility] Heart Rate 74 06/01/2017 [facility] Respitory Rate 18 06/01/2017 [facility] Systolic (mm Hg) 115 06/01/2017 [facility] Diastolic (mm Hg) 75 06/01/2017 [facility] Temperature Oral (F) 98.3 F 06/01/2017 [facility] Height 175.26 cm 06/01/2017 [facility] Weight 75 1 08/02/2016 [facility] BMI Calculated 24.42 06/01/2017 [facility] Diastolic (mm Hg) 94 11/14/2016 [facility] Respitory Rate 18 11/14/2016 [facility] Systolic (mm Hg) 158 11/14/2016 [facility] Temperature Oral (F) 98.9 F 11/14/2016 [facility] Heart Rate 80 11/14/2016 [facility] BMI Calculated 23.68 11/13/2016 [facility] Weight 72.727 11/13/2016 [facility] Heart Rate 78 11/13/2016 [facility] Height 175.26 cm 11/13/2016 [facility] Temperature Oral (F) 98.6 F 11/13/2016 [facility] Respitory Rate 16 11/13/2016 [facility] Systolic (mm Hg) 154 11/13/2016 [facility] Diastolic (mm Hg) 97 11/13/2016 [facility] Weight 69.091 03/03/2012 [facility] Height 170.18 cm 03/03/2012 [facility] Encounters Location Location Details Encounter Type Encounter Number Reason For Visit Attending Provider ADM Date DC Date Status Source [facility] Emergency [id number] CHEST PAIN/ FLANK PAIN KENDAL ARAUJOLINA 2 03/03/2012 Active [facility] Emergency [id number] Justin Haas 11/13/2016 11/14/2016 [facility] Emergency [id number] Yaw Sofia 06/01/2017 06/01/2017 [facility] Outpatient [id number] PANCREATIC MASS EDUARDO LIANNA Cancel [facility] Outpatient [id number] PANCREATIC MASS ADNAN CALE Cancel [facility] Procedures No Data Provided for This Section Assessment and Plan No Data Provided for This Section Plan of Care No Data Provided for This Section Social History Social History Date Source Social History TypeResponse Smoking Status Never smoker; Exposure to Tobacco Smoke None; Cigarette Smoking Last 365 Days No; Reg Smoking Cessation Counseling No 06/01/2017 [facility] Family History No Data Provided for This Section Advance Directives No Data Provided for This Section Functional Status No Data Provided for This Section
--- OUTSIDE RECORDS SUMMARY | 2020-04-20 12:28 | XMS REPORT | Continuity of Care Document ---
Author Author [facility] Organization [facility] Address [address] [place] [address] Phone Unavailable Care Team Providers Care Corporate Consultant Name Role Phone Vane ATWOOD III PCP KARY SALINAS Attphys Unavailable Sofia Chidi-Kevin Tidwell Attphys Nataliia Haas Attphys Problems Condition Name Condition Details Condition Category Status Onset Date Resolution Date Last Treatment Date Treating Clinician Comments Source LOWER BACK PAIN LOWE R BACK PAIN Active 06/01/2017 [facility] Active 2017-06-01 00:00:00 2017-06-01 20:02:00 [facility] CP/THROAT PAIN CP/T HROAT PAIN Active 11/13/2016 [facility] Active 2016-11-13 00:00:00 2016-11-13 19:07:00 [facility] PANCREATIC MASS PANC REATIC MASS Active 03/18/2012 [facility] Active 2012-03-18 00:00:00 2012-04-24 15:17:00 [facility] CHEST PAIN/ FLANK PAIN CHES T PAIN/ FLANK PAIN Active 03/03/2012 [facility] Active 2012-03-03 07:00:00 2013-08-10 13:04:00 [facility] Problem Condition Active [facility] Strain of muscle, fascia and tendon of lower back, ini tial encounter Strain of muscle, fascia and tendon of lower back, initial encounter 06/01/2017 06/04/2017 [facility] 2017-06-01 06: 00:00 2017-06-04 05:11:01 2017-06-04 05:11:01 Jimy machado Dental caries, unspecified Den ammon caries, unspecified 11/13/2016 11/16/2016 HERNAN[facility]Z [facility] 2016-11-13 05:0 0:00 2016-11-16 04:27:28 2016-11-16 04:27:28 Jimy machado Other specified disorders of teeth and supporting stru ctures Other specified disorders of teeth and supporting structures 11/13/2016 11/16/2016 HERNANDEZ [facility] 2016-11-13 05:00:00 2016-11-16 04:27 :28 2016-11-16 04:27:28 Jimy Patiño Allergies, Adverse Reactions, Alerts This patient has no known allergies or adverse reactions. Social History Social Habit Start Date Stop Date Quantity Comments Source History SDOH Alcohol Std Drinks [place] [facility] History SDOH Alcohol Binge [place] [facility] Sex Assigned At Rudy fuchs [facility] Tobacco use and exposure 2018-07-04 00:00:00 2018-07-04 00:00:00 Kendall guillen used [place] [facility] Alcohol intake 2018-07-04 00:00:00 2018-07-04 00:00:00 Current non-drinker of alcohol (finding) [place] [facility] History SDOH Alcohol Frequency 2018-07-04 00:00:00 2018-07-04 00:00:0 0 1 [place] [facility] Smoking Status Start Date Stop Date Source Social History Jimy Patiño Medications Ordered Medication Name Filled Medication Name Start Date Stop Da te Current Medication? Ordering Clinician Indication Dosage Frequency Signature (SIG) Comments Components Source Motrin 600 mg oral tablet 2017-06-01 21:32:00 Yes 600 mg = 1 tab, PO, Q6H, PRN Pain, take with food, X 5 day, # 20 tab, 0 Refill(s) Jimy Patiño tramadol hydrochloride 50 MG Oral Tablet [Ultram] 2017-06-01 21:32:00 Yes 50 mg = 1 tab, PO, Q 4H, PRN pain, No driving while under the influence of this medication, X 5 day, # 30 tab, 0 Refill(s) Jimy Patiño {21 (Methylprednisolone 4 MG Oral Tablet [Medrol]) } Pack [M edrol Dosepak] 2017-06-01 21:31:00 Yes See Instructions, PO, Take by mouth as directed on label., # 1 Pack, 0 Refill(s) Jimy Patiño Ketorolac 2017-06-01 21:31:00 No 60 mg, Route: IM, Drug form: INJ, ONCE, Dosing Weight 75, kg, Priority: STAT, 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 Acetaminophen 325 MG / Hydrocodone Bitartrate 10 MG Or al Tablet [[place] 10/325] 2016-11-13 23:49:00 No Note s: Do not exceed 4gm/day of acetaminophen. (Same as: [place] 325/10) Jimy Patiño Phenergan 12.5 mg oral tablet 2012-03-03 21:49:41 Yes Branden Cruz Black 12.5 mg, 1 tab, PO, Q4H, PRN, 30 tab, Na usea & Vomiting, Substitution Allowed, TAB [facility] [place] 7.5/325 oral tablet 2012-03-03 21:49:34 Yes Branden Jansen arris Black 1- 2 tab, PO, Q4-6H, PRN, 30 tab, Pain, Substitution Allowed, Maintenance [facility] Phenergan 12.5 mg oral tablet 2012-03-03 21:27:46 No Branden Cruz Black 12.5 mg, 1 tab, PO, Q4H, PRN, 60 tab, Na usea & Vomiting, Substitution Allowed, TAB [facility] [place] 7.5/325 oral tablet 2012-03-03 21:27:32 No Branden Jansen arris Black 1-2 tab, PO, Q4-6H, PRN, 30 tab, Pain, Substitution Allowed, Maintenance [facility] Phenergan 2012-03-03 21:24:00 No Branden Cruz Black 12.5 mg, Route: IVPB, ONCE, Dosing Weight 69.091, kg, Priority: STAT, Start date: 03/03/12 16:24:00, Stop date: 03/03/12 16:24:00 [facility] morphine Sulfate 2012-03-03 21:23:00 No Branden Cruz Ronnell ck 4 mg, Route: IVP, ONCE, Dosing Weight 69.091, kg, Priority: STAT, Start date: 03/03/12 16:23:00, Stop date: 03/03/12 16:23:00 [facility] hydromorphone 2012-03-03 20:15:00 No Branden Cuevas 1 mg, Route: IV, ONCE, Dosing Weight 69.091, kg, Start date: 03/03/12 15:15:00, Stop date: 03/03/12 15:15:00 [facility] ondansetron 2012-03-03 18:12:00 No Branden Cuevas 4 mg, 2 mL, Route: IVP, Drug form: INJ, ONCE, Dosing Weight 69.091, kg, Priority: STAT, Start date: 03/03/12 13:12:00, Stop date: 03/03/12 13:12:00 [facility] famotidine 2012-03-03 18:12:00 No Branden Cruz Black 20 mg, 2 mL, Route: IVP, Drug form: INJ, ONCE, Dosing Weight 69.091, kg, Priority: STAT, Start date: 03/03/12 13:12:00, Stop date: 03/03/12 13:12:00 [facility] morphine Sulfate 2012-03-03 18:12:00 No Branden eRynaga ck 4 mg, 2 mL, Route: IVP, Drug form: INJ, ONCE, Dosing Weight 69.091, kg, Priority: STAT, Start date: 03/03/12 13:12:00, Stop date: 03/03/12 13:12:00 [facility] Saline Flush 0.9% 2012-03-03 18:12:00 No Branden Cruz Bl ack 5 ml, Route: IVP, Drug Form: INJ, Dosing Weight 69.091, kg, PRN, PRN Line Flush, Start date: 03/03/12 13:12:00, Duration: 24 hr, Stop date: 03/04/12 13:11:00 [facility] Vital Signs Vital Name Observation Time Observation Value Comments Source Weight 2019-12-25 16:26:00 175 [lb_av] [facility] BMI (Body Mass Index) 2019-12-25 16:26:00 25.8 kg/m2 [facility] Respitory Rate 2017-06-01 21:38:00 [facility] [place] Heart Rate 2017-06-01 21:38:00 [facility] [place] Systolic (mm Hg) 2017-06-01 21:38:00 Ned rial [place] Diastolic (mm Hg) 2017-06-01 21:38:00 Mem [facility] [place] Heart Rate 2017-06-01 17:48:00 [facility] [place] Respitory Rate 2017-06-01 17:48:00 [facility] [place] Systolic (mm Hg) 2017-06-01 17:48:00 Ned [facility] [place] Diastolic (mm Hg) 2017-06-01 17:48:00 [facility] [place] Temperature Oral (F) 2017-06-01 17:48:00 98.3 F [facility] [place] Height 2017-06-01 17:48:00 175.26 cm [facility] [place] Weight 2017-06-01 17:48:00 [facility] [place] BMI Calculated 2017-06-01 17:48:00 [facility] [place] Diastolic (mm Hg) 2016-11-14 00:21:00 [facility] [place] Respitory Rate 2016-11-14 00:21:00 [facility] [place] Systolic (mm Hg) 2016-11-14 00:21:00 Ned [facility] [place] Temperature Oral (F) 2016-11-14 00:21:00 98.9 F [facility] [place] Heart Rate 2016-11-14 00:21:00 [facility] [place] BMI Calculated 2016-11-13 23:30:00 [facility] [place] Weight 2016-11-13 23:30:00 [facility] [place] Heart Rate 2016-11-13 23:30:00 [facility] [place] Height 2016-11-13 23:30:00 175.26 cm [facility] Temperature Oral (F) 2016-11-13 23:30:00 98.6 F [facility] [place] Respitory Rate 2016-11-13 23:30:00 Yehuda pang [place] Systolic (mm Hg) 2016-11-13 23:30:00 Ned stallings [place] Diastolic (mm Hg) 2016-11-13 23:30:00 Carlos barreto [place] Weight 2012-03-03 17:04:00 [facility] [place] Height 2012-03-03 17:04:00 [facility] Procedure Date / Time Performed Performing Clinician Beatriz jose carlos Computed tomography of abdomen and pelvis with contrast 00:00:00 [facility] Computed tomography of chest with contrast 2019-12-25 00:00:00 [facility] Plan of Care Planned Activity Planned Date Details Comments Source Instructions Abdominal Pain - Adult [facility] Encounters Start Date/Time End Date/Time Encounter Type Admission Type [facility] Care Department Encounter ID Source 2019-12-25 16:29:00 2019-12-25 19:50:00 Departed Emergency Room 1 KARY SALINAS [facility] [id number] [facility] 2018-07-16 18:22:00 2018-07-16 19:12:[address] [facility] [id number] [facility] 2017-06-01 11:36:00 2017-06-01 15:40:00 Outpatient Yaw Black [facility] [id number] 2016-11-13 18:23:00 2016-11-13 19:53:00 Outpatient Rod Haas [facility] [id number] Results Test Description Test Time Test Comments Results Result Comments Source CT ABDOMEN/PELVIS W 2019-12-25 18:02:00 [place] [address] Patient Name: TIN DOTSON MR #: [id number] : 1980 Age/Sex: 39/M Req #: [id number] Adm Physician: Ordered by: KARY SALINAS DO Report #: [id number] Location: ER Room/Bed: Procedure: [id number] CT/CT ABDOMEN/PELVIS W Exam Date: 12/25/19 Exam Time: 1745 REPORT STATUS: Signed EXAM: CT Chest, Abdomen and Pelvis WITH contrast INDICATION: Epigastric pain. COMPARISON: None. TECHNIQUE: Chest, abdomen and pelvis were scanned utilizing a multidetector helical scanner from the lung apex to the pubic symphysis after administration of IV contrast. Coronal and sagittal reformations were obtained. Routine protocol was performed. Scan was performed when during portal venous phase. IV CONTRAST: 100 mL of Isovue 370 ORAL CONTRAST: None COMPLICATIONS: None RADIATION DOSE: Total DLP: 1011.99 mGy*cm Estimated effective dose: (DLP x 0.015 x size factor) mSv CTDIvol has been reviewed. It is below the limits set by the Radiation Protocol Committee (RPC). Dose modulation, iterative reconstruction, and/or weight based adjustment of the mA/kV was utilized to reduce the radiation dose to as low as reasonably achievable. FINDINGS: LINES and TUBES: None. LUNGS AND AIRWAYS: The lungs are unremarkable. Airways are normal. There is mild bibasilar atelectasis. PLEURA: The pleural spaces are clear. HEART AND MEDIASTINUM: The thyroid gland is normal. No mediastinal, hilar or axillary lymphadenopathy. The heart is normal in size. There is no pericardial effusion. HEPATOBILIARY: No focal hepatic lesions. No biliary ductal dilation. GALLBLADDER: No radio-opaque stones or sludge. No wall thickening. SPLEEN: No splenomegaly. PANCREAS: No focal masses or ductal dilatation. ADRENALS: No adrenal nodules KIDNEYS/URETERS: Kidneys enhance symmetrically. No hydronephrosis. No cystic or solid mass lesions. No stones. GI TRACT: There is diverticulosis without evidence of active inflammation. No abnormal distention, wall thickening, or evidence of bowel obstruction. Appendix is normal. PELVIC ORGANS/BLADDER: Unremarkable. LYMPH NODES: No lymphadenopathy. VESSELS: Unremarkable. PERITONEUM / RETROPERITONEUM: No free air or fluid. BONES: Unremarkable. SOFT TISSUES: Unremarkable IMPRESSION: 1. No intrathoracic findings to explain the patient's symptoms were identified. 2. No intra-abdominal findings to explain the patient's symptoms are identified. Signed by: Roxie Spear MD on 12/25/2019 6:42 PM Dictated By: ROXIE SPEAR MD 41 Transcribed By: TED on 12/25/191841 COPY TO: KARY SALINAS DO CT CHEST W 2019-12-25 18:02:00 [place] [address] Patient Name: TIN DOTSON MR #: [id number] : 1980 Age/Sex: 39/M Req #: [id number] Adm Physician: Ordered by: KARY SALINAS DO Report #: [id number] Location: ER Room/Bed: Procedure: [id number] CT/CT CHEST W Exam Date: 12/25/19 Exam Time: 1745 REPORT STATUS: Signed EXAM: CT Chest, Abdomen and Pelvis WITH contrast INDICATION: Epigastric pain. COMPARISON: None. TECHNIQUE: Chest, abdomen and pelvis were scanned utilizing a multidetector helical scanner from the lung apex to the pubic symphysis after administration of IV contrast. Coronal and sagittal reformations were obtained. Routine protocol was performed. Scan was performed when during portal venous phase. IV CONTRAST: 100 mL of Isovue 370 ORAL CONTRAST: None COMPLICATIONS: None RADIATION DOSE: Total DLP: 1011.99 mGy*cm Estimated effective dose: (DLP x 0.015 x size factor) mSv CTDIvol has been reviewed. It is below the limits set by the Radiation Protocol Committee (RPC). Dose modulation, iterative reconstruction, and/or weight based adjustment of the mA/kV was utilized to reduce the radiation dose to as low as reasonably achievable. FINDINGS: LINES and TUBES: None. LUNGS AND AIRWAYS: The lungs are unremarkable. Airways are normal. There is mild bibasilar atelectasis. PLEURA: The pleural spaces are clear. HEART AND MEDIASTINUM: The thyroid gland is normal. No mediastinal, hilar or axillary lymphadenopathy. The heart is normal in size. There is no pericardial effusion. HEPATOBILIARY: No focal hepatic lesions. No biliary ductal dilation. GALLBLADDER: No radio-opaque stones or sludge. No wall thickening. SPLEEN: No splenomegaly. PANCREAS: No focal masses or ductal dilatation. ADRENALS: No adrenal nodules KIDNEYS/URETERS: Kidneys enhance symmetrically. No hydronephrosis. No cystic or solid mass lesions. No stones. GI TRACT: There is diverticulosis without evidence of active inflammation. No abnormal distention, wall thickening, or evidence of bowel obstruction. Appendix is normal. PELVIC ORGANS/BLADDER: Unremarkable. LYMPH NODES: No lymphadenopathy. VESSELS: Unremarkable. PERITONEUM / RETROPERITONEUM: No free air or fluid. BONES: Unremarkable. SOFT TISSUES: Unremarkable IMPRESSION: 1. No intrathoracic findings to explain the patient's symptoms were identified. 2. No intra-abdominal findings to explain the patient's symptoms are identifi ed. Signed by: Roxie Spear MD on 12/25/2019 6:42 PM Dictated By: ROXIE SPEAR MD 41 Transcribed By: TED on 12/25/191841 COPY TO: AKRY SALINAS DO Urine color determination 2019-12-25 17:09:00 Test Item Urine Color (test code = 5778-6) YELLOW YELLOW [facility] [id number] 17:09:00* Test Item Value Reference Range Interpretation Comments Urine Clarity (test code = 64317-6) SL CLOUDY [facility] by Test strip 2019-12-25 17:09:00* Test Item Value Reference Range Interpretation Comments Urine Specific [place] (test code = 5811-5) 1.030 1.010-1.02 5 [facility] pH measurement by automated test [id number] 17:09:00* Test Item Value Reference Range Interpretation Comments Urine pH (test code = 24399-0) 6 5-7 [facility] leukocyte esterase detection by [id number] 17:09:00* Test Item Value Reference Range Interpretation Comments Urine Leukocyte Esterase (test code = 5799-2) NEGATIVE NEGATIVE [facility] nitrite [id number] 17:09:00* Test Item Value Reference Range Interpretation Comments Urine Nitrite (test code = 13789-8) NEGATIVE NEGATIVE [facility] protein measurement by test strip (mass/volume)2019-12-25 17:09:00* Test Item Value Reference Range Interpretation Comments Urine Protein (test code = 5804-0) NEGATIVE NEGATIVE [facility] glucose [id number] 17:09:00* Test Item Value Reference Range Interpretation Comments Urine Glucose (UA) (test code = 2349-9) NEGATIVE NEGATIVE [facility] ketones detection by automated test [id number] 17:09:00* Test Item Value Reference Range Interpretation Comments Urine Ketones (test code = 17623-1) NEGATIVE NEGATIVE [facility] opiates screening [id number] 17:09:00* Test Item Value Reference Range Interpretation Comments Urine Opiates Screen (test code = 62134-3) NEGATIVE NEGATIVE ALL TESTS PERFORMED MANUALLY ON [employer] TOX/SEE TESTTexas Health FriscoBarbiturates screen, [id number] 17:09:00* Test Item Value Reference Range Interpretation Comments Urine Barbiturates Screen (test code = 672763038) NEGATIVE NEGA TIVE [facility] phencyclidine detection by screening [id number] 17:09:00* Test Item Value Reference Range Interpretation Comments Urine Phencyclidine Screen (test code = 96269-2) NEGATIVE NEGAT KENNETH [facility] amphetamines detection by screen method > 1000 [id number] 17:09:00* Test Item Value Reference Range Interpretation Comments Urine Amphetamines Screen (test code = 60464-1) NEGATIVE NEGATI VE [facility]isco[facility]oroscopic procedure less than one hour [id number] 17:09:00* Test Item Value Reference Range Interpretation Comments Urine Methamphetamines Screen (test code = Urine Metha mphetamines Screen) NEGATIVE NEGATIVE [facility] benzodiazepines detection by screening [id number] 17:09:00* Test Item Value Reference Range Interpretation Comments Urine Benzodiazepines Screen (test code = 24665-7) NEGATIVE NEG ATIVE [facility] cocaine measurement (mass/volume) 2019-12-25 17:09:00* Test Item Value Reference Range Interpretation Comments Urine Cocaine Screen (test code = 3398-5) NEGATIVE NEGATIVE [facility] cannabinoids detection by screening [id number] 17:09:00* Test Item Value Reference Range Interpretation Comments Urine Cannabinoids Screen (test code = 08601-6) NEGATIVE NEGATI VE THESE RESULTS ARE FOR MEDICAL TREATMENT ONLYTHIS REPORT CONTAINS UNCONFIR MED SCREENING RESULTS*POSITIVE RESULTS WILL BE CONFIRMED BY REFERENCE LAB UPON R EQUEST CUT-OFFDRUG CLASS CONCENTRATION ng/mLAmphetamines 1000Methamphetamines 1000Cocaine 300Opiate 300Phencyc lidine 25Cannabinoid 50Barbiturates 300Benzodiazepine 300Methadone 300[facility] methadone [id number] 17:09:00* Test Item Value Reference Range Interpretation Comments Urine Methadone Screen (test code = 37804-0) NEGATIVE NEGATIVE THESE RESULTS ARE FOR MEDICAL TREATMENT ONLYTHIS REPORT CONTAINS UNCONFIR MED SCREENING RESULTS*POSITIVE RESULTS WILL BE CONFIRMED BY REFERENCE LAB UPON R EQUEST CUT-OFFDRUG CLASS CONCENTRATION ng/mLAmphetamines 1000Methamphetamines 1000Cocaine Metabolite 300Opiate 300Phencyc lidine 25Cannabinoid 50Barbiturates 300Benzodiazepine 300Methadone 300[facility] urobilinogen measurement by test strip (mass/volume)2019-12-25 17:09:00* Test Item Value Reference Range Interpretation Comments Urine Urobilinogen (test code = 95263-7) 0.2 0.2-1 [facility] total bilirubin measurement (mass/volume)2019-12-25 17:09:00* Test Item Value Reference Range Interpretation Comments Urine Bilirubin (test code = 1978-6) NEGATIVE NEGATIVE [facility] erythrocytes [id number] 17:09:00* Test Item Value Reference Range Interpretation Comments Urine Blood (test code = 33981-2) NEGATIVE NEGATIVE [facility] urine sediment leukocyte count by microscopy (number/high power field)2019-12-25 17:09:00* Test Item Value Reference Range Interpretation Comments Urine WBC (test code = 5821-4) NONE 0-5 [facility]isco[facility]rythrocytes detection in urine sediment by light [id number] 17:09:00* Test Item Value Reference Range Interpretation Comments Urine RBC (test code = 65366-6) NONE 0-5 [facility]isco[facility]acteria detection in urine sediment by light usprbxujwj5764-78-95 17:09:00* Test Item Value Reference Range Interpretation Comments Urine Bacteria (test code = 34951-3) FEW NONE [facility]iscoEpithelial cells detection in urine sediment by light [id number] 17:09:00* Test Item Value Reference Range Interpretation Comments Urine Epithelial Cells (test code = 53707-2) NONE NONE [facility]iscoMucus detection in urine sediment by light atjtvqmyve6641-08-44 17:09:00* Test Item Value Reference Range Interpretation Comments Urine Mucus (test code = 8247-9) MODERATE RARE [facility] leukocytes automated count (number/volume)2019-12-25 16:31:00* Test Item Value Reference Range Interpretation Comments White Blood Count (test code = 6690-2) 10.56 4.8-10.8 [facility] erythrocytes automated count (number/volume)2019-12-25 16:31:00* Test Item Value Reference Range Interpretation Comments Red Blood Count (test code = 789-8) 5.27 4.3-5.7 [facility] hemoglobin measurement (moles/volume)2019-12-25 16:31:00* Test Item Value Reference Range Interpretation Comments Hemoglobin (test code = 24614-0) 16.1 14.0-18.0 [facility]isco[facility] blood hematocrit (volume fraction)2019-12-25 16:31:00* Test Item Value Reference Range Interpretation Comments Hematocrit (test code = 4544-3) 48.8 38.2-49.6 [facility]isco[facility] erythrocyte mean corpuscular xrztru3907-26-15 16:31:00* Test Item Value Reference Range Interpretation Comments Mean Corpuscular Volume (test code = 787-2) 92.6 81-99 [facility] erythrocyte mean corpuscular hemoglobin (mass per erythrocyte)2019-12-25 16:31:00* Test Item Value Reference Range Interpretation Comments Mean Corpuscular Hemoglobin (test code = 785-6) 30.6 28-32 [facility]Aut[facility] erythrocyte mean corpuscular hemoglobin concentration measurement (mass/volume)2019-12-25 16:31:00* Test Item Value Reference Range Interpretation Comments Mean Corpuscular Hemoglobin Concent (test code = 786-4) 33.0 31-35 [facility]iscoRDW SljQi-Iml8229-03-13 16:31:00* Test Item Value Reference Range Interpretation Comments Red Cell Distribution Width (test code = 53395-5) 12.4 11.7 -14.4 [facility]isco[facility] blood platelet count (count/volume)2019-12-25 16:31:00* Test Item Value Reference Range Interpretation Comments Platelet Count (test code = 777-3) 346 140-360 [facility]isco[facility] blood segmented neutrophil count as percentage of total qxhvegrtae9343-06-70 16:31:00* Test Item Value Reference Range Interpretation Comments Neutrophils (%) (Auto) (test code = 20572-7) 62.6 38.7-80.0 [facility]iscoAutomated blood lymphocyte count as percentage ot total ehidskptkf1473-93-87 16:31:00* Test Item Value Reference Range Interpretation Comments Lymphocytes (%) (Auto) (test code = 736-9) 27.0 18.0-39.1 [facility]iscoAutom[facility] blood monocyte count as percentage of total vetbpnrpfy3043-01-77 16:31:00* Test Item Value Reference Range Interpretation Comments Monocytes (%) (Auto) (test code = 5905-5) 7.8 4.4-11.3 [facility]isco[facility] blood eosinophil count as percentage of total fyznocrxqe9428-61-33 16:31:00* Test Item Value Reference Range Interpretation Comments Eosinophils (%) (Auto) (test code = 713-8) 1.2 0.0-6.0 [facility] blood basophil count as percentage of total etwcyeicwl3327-18-93 16:31:00* Test Item Value Reference Range Interpretation Comments Basophils (%) (Auto) (test code = 706-2) 0.8 0.0-1.0 [facility]iscoFluoroscopic procedure less than one hour mtskfqyg3771-42-99 16:31:00* Test Item Value Reference Range Interpretation Comments IM GRANULOCYTES % (test code = IM GRANULOCYTES %) 0.6 0.0- 1.0 [facility] blood neutrophil count 2019-12-25 16:31:00* Test Item Value Reference Range Interpretation Comments Neutrophils # (Auto) (test code = 751-8) 6.6 2.1-6.9 [facility] lymphocytes count (number/volume) 2019-12-25 16:31:00* Test Item Value Reference Range Interpretation Comments Lymphocytes # (Auto) (test code = 91138-7) 2.9 1.0-3.2 [facility] monocytes automated count (number/volume)2019-12-25 16:31:00* Test Item Value Reference Range Interpretation Comments Monocytes # (Auto) (test code = 742-7) 0.8 0.2-0.8 [facility]isco[facility] blood eosinophil count 2019-12-25 16:31:00* Test Item Value Reference Range Interpretation Comments Eosinophils # (Auto) (test code = 711-2) 0.1 0.0-0.4 [facility] FriscoAutomated blood basophil count (count/volume)2019-12-25 16:31:00* Test Item Value Reference Range Interpretation Comments Basophils # (Auto) (test code = 704-7) 0.1 0.0-0.1 [facility]iscoFluoroscopic procedure less than one hour fcdtvnux8600-63-76 16:31:00* Test Item Value Reference Range Interpretation Comments Absolute Immature Granulocyte (auto (avril t code = Absolute Immature Granulocyte (auto) 0.06 0-0.1 [facility] sodium measurement (moles/volume)2019-12-25 16:31:00* Test Item Value Reference Range Interpretation Comments Sodium Level (test code = 2951-2) 142 136-145 [facility] potassium measurement (moles/volume)2019-12-25 16:31:00* Test Item Value Reference Range Interpretation Comments Potassium Level (test code = 2823-3) 3.7 3.5-5.1 [facility] chloride measurement (moles/volume)2019-12-25 16:31:00* Test Item Value Reference Range Interpretation Comments Chloride Level (test code = 2075-0) 107 98-107 [facility] carbon dioxide, total measurement (moles/volume)2019-12-25 16:31:00* Test Item Value Reference Range Interpretation Comments Carbon Dioxide Level (test code = 2028-9) 27 22-29 [facility] anion hnq8094-89-96 16:31:00* Test Item Value Reference Range Interpretation Comments Anion Gap (test code = 89508-5) 11.7 8-16 [facility] urea nitrogen measurement (mass/volume)2019-12-25 16:31:00* Test Item Value Reference Range Interpretation Comments Blood Urea Nitrogen (test code = 3094-0) 15 7-26 [facility] creatinine measurement (mass/volume)2019-12-25 16:31:00* Test Item Value Reference Range Interpretation Comments Creatinine (test code = 2160-0) 1.02 0.72-1.25 [facility] urea nitrogen/creatinine mass qbihl6522-57-62 16:31:00* Test Item Value Reference Range Interpretation Comments BUN/Creatinine Ratio (test code = 3097-3) 15 6-25 [facility] FriscoEstimated glomerular filtration rate (GFR) pzhognsxxijpt2682-68-17 16:31:00* Test Item Value Reference Range Interpretation Comments Estimat Glomerular Filtration Rate (test code = 475289492) > 60 >60 Ranges were taken from the National Kidney Disease Education Program and the [facility] Kidney Foundation literature.Reference ranges:60 or greater: Riwarw86-99 ( for 3 consecutive months): Chronic kidney disease 15 or less: Kidney failureTexas Health FriscoGlucose grtgjypvucn0479-44-19 16:31:00* Test Item Value Reference Range Interpretation Comments Glucose Level (test code = FTC7242) 102 74-118 [facility] calcium measurement (mass/volume)2019-12-25 16:31:00* Test Item Value Reference Range Interpretation Comments Calcium Level (test code = 16701-8) 9.7 8.4-10.2 [facility] total bilirubin measurement (mass/volume)2019-12-25 16:31:00* Test Item Value Reference Range Interpretation Comments Total Bilirubin (test code = 1975-2) 0.5 0.2-1.2 [facility]iscoFluoroscopic procedure less than one hour jmcakdqx7291-49-83 16:31:00* Test Item Value Reference Range Interpretation Comments Aspartate Amino Transf (AST/SGOT) (test code = Aspartate Amino Transf (AST/SGOT)) 20 5-34 [facility] plasma alanine aminotransferase measurement (enzymatic activity/volume)2019-12-25 16:31:00* Test Item Value Reference Range Interpretation Comments Alanine Aminotransferase (ALT/SGPT) (test code = 1742-6) 41 0-55 [facility] protein measurement (mass/volume)2019-12-25 16:31:00* Test Item Value Reference Range Interpretation Comments Total Protein (test code = 2885-2) 7.6 6.5-8.1 [facility] albumin measurement (mass/volume)2019-12-25 16:31:00* Test Item Value Reference Range Interpretation Comments Albumin (test code = 1751-7) 3.9 3.5-5.0 [facility]iscoPlasma globulin measurement (mass/volume) 2019-12-25 16:31:00* Test Item Value Reference Range Interpretation Comments Globulin (test code = 47307-4) 3.7 2.3-3.5 [facility] albumin/globulin mass rkekn8391-80-07 16:31:00* Test Item Value Reference Range Interpretation Comments Albumin/Globulin Ratio (test code = 1759-0) 1.1 0.8-2.0 [facility] plasma alkaline phosphatase measurement (enzymatic activity/volume)2019-12-25 16:31:00* Test Item Value Reference Range Interpretation Comments Alkaline Phosphatase (test code = 6768-6) 61 40-150 [facility] FriscoBNP Uwu-iLou8580-60-13 16:31:00* Test Item Value Reference Range Interpretation Comments B-Type Natriuretic Peptide (test code = 55596-0) 19.6 0-100 [facility] creatine kinase measurement (enzymatic activity/volume)2019-12-25 16:31:00* Test Item Value Reference Range Interpretation Comments Creatine Kinase (test code = 2157-6) 163 30-200 [facility] creatine kinase MB measurement (mass/volume)2019-12-25 16:31:00* Test Item Value Reference Range Interpretation Comments Creatine Kinase MB (test code = 71087-9) 0.70 0-5.0 [facility]iscoTroponin I measurement by highly sensitive enzyme zsstuvgtqds7565-49-26 16:31:00* Test Item Value Reference Range Interpretation Comments Troponin I (test code = 12220-7) < 0.001 0-0.300 [facility] lipase measurement (enzymatic activity/volume)2019-12-25 16:31:00* Test Item Value Reference Range Interpretation Comments Lipase (test code = 3040-3) 45 8-78 [facility]00Negative (11/13/16 7:13 PM)[facility] - KGGWKQXU4749-93-86 00:13:00Negative (11/13/16 7:13 PM)[facility] - LZOANHTY7992-62-61 00:13:00Negative (11/13/16 7:13 PM) [facility] XmfbnktYUNFOGHGV3021-76-74 18:13:52389Umkzthcm HermannCHEMISTRY 2012-03-03 18:13:0011.8[facility] UcapeayAMLATBVVV0643-62-34 18:13:0011[facility] DudyjvwZWDNOMPBU4364-19-60 18:13:001.2[facility] ZzwyggrCUUAAUXCJ7163-88-19 18:13:003.0[facility] HdgkzloDMDPAADPW4753-81-10 18:13:69299Qsppmqzu [place] WANHALNTR3544-86-39 18:13:003.8[facility] DeyxquhMCCXUXGKW2757-20-97 18:13:0027 [facility] WaoxslyHWDMMEMNI9243-50-34 18:13:003.6[facility] HermannCHEMISTRY 2012-03-03 18:13:008.5[facility] ZcqebkaFUDJABFJD3013-07-91 18:13:38674Eqzscfoi WpmfrfbJGAGQCZGO8295-89-92 18:13:001.0[facility] TxgolsrVTLQFLLMV5285-04-37 18:13:0011[facility] YtookvdZWPZCSPEF8645-78-73 18:13:48683Whtairae Haroon MTXBXNBEJ5272-06-94 18:13:0026[facility] IodhrjiQZDAKOVQD3833-83-93 18:13:006.6 [facility] FcmvsxwMHBOPXYOU1073-89-00 18:13:009[facility] RjpjbnxKHSFEKPBO5454-10-37 18:13:0061[facility] LsphfdaSJFENXSAF9867-07-76 18:13:000.1[facility] [place] WHYYKWXCES9719-90-63 18:13:0033.4[facility] KgrbqakBIKGUGSVGF9369-01-52 18:13:00 12.1[facility] VwllrvaZQXIBHBGOI9510-51-04 18:13:15193Knhausee HermannHEMATOLOGY 2012-03-03 18:13:008.0[facility] AwioxbuCTJJQOZVSJ6916-12-99 18:13:00* Test Item Value Reference Range Interpretation Comments MCH (test code = MCH) 33.2 pg 27.0-31.0 H [facility] RpltktpYRHJHNOKOO6016-17-31 18:13:0099.4[facility] HermannHEMATOLOGY 2012-03-03 18:13:0013.2[facility] BcfpipsZWYLBKMUCT4551-62-31 18:13:0039.6[facility] DwwrfuoNNFRGYVKXP3852-40-92 18:13:003.98[facility] FoczoigHPKQDEIFFX0213-09-60 18:13:0010.5[facility] NjkzmbqIDTTJDKLRZ0768-04-87 18:13:004.6[facility] [place] LAACULXVWV1584-56-60 18:13:001.3[facility] QgjrwtlRHUFQXUOCE1999-60-38 18:13:005.0 [facility] LcakuosNGQLXDYFXO2079-17-47 18:13:000.7[facility]annHEMATOLOGY 2012-03-03 18:13:0044.0[facility] ZbzhxsqDAMWTWDMMN9400-95-42 18:13:0047.3[facility] QmqdhhrQARCOXXWRN0329-11-24 18:13:006.7[facility] KtqxcmaJVSEVRGOKC8484-36-98 18:13:000.7[facility] WjlfiitHRQMTQNNUM5039-05-85 18:13:000.1[facility] [place] LZMSKWCZZK0612-91-53 18:13:000.1[facility] CcxzsleIVDOXWZFXO9321-49-43 18:13:0017 [facility] UjkvyctLQCZCYDFXH5599-57-90 18:13:0015[facility] HermannURINALYSIS 2012-03-03 18:13:00Large *ABN*(03/03/2012 13:13:00) [facility] 2012-03-03 18:13:00Negative (03/03/2012 13:13:00) [facility] HermannURINALYSIS 2012-03-03 18:13:00Trace *ABN*(03/03/2012 13:13:00) [facility] 18:13:00Negative mg/dL *NA*(03/03/2012 13:13:00) [facility] SVZBOCDAJV8793-28-10 18:13:00Negative *NA*(03/03/2012 13:13:00) [facility] SqnebjgQKYBUMEQOX4013-77-55 18:13:001.013[facility] HjjvxerKLDEYGACVM2428-01-08 18:13:00Clear (03/03/2012 13:13:00) [facility] CenterPixudiyXUJTLBTYKQ2666-07-01 18:13:005.0[facility] AcjfwbdRDGBPCTUTZ9897-09-03 18:13:00Negative mg/dL (03/03/2012 13:13:00) [facility] CenterXbnipzyBIUZQVPYSK1438-26-94 18:13:00Negative mg/dL *NA*(03/03/2012 13:13:00) [facility]
--- NOTE | 2020-04-20 13:09 | Emergency Department Note ---
History of Present Illnes History of Present Illness Chief Complaint: Genitourinary History of Present Illness This is a 39 year old male SCROTUM FEEL "HIGH AND TIGHT" FOR 2 WEEKS. THEN LAST NIGHT PAIN BECAME VERY BAD, FELT "SWOLLEN AREA ON TOP OF R TESTICLE" ALSO W/ NAUSEA AND R LOWER BACK PAIN. 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 Any updates have been documented here. Past Medical History Recent Fever: No Clinical Suspicion of Infectio: No New/Unexplained Change in Ment: No Past Medical History: Hypertension, Kidney Stones, GERD Past Surgical History: None Social History Smoking Cessation: Never Smoker Counseling Performed: No Alcohol Use: None Any Illegal Drug Use: No TB Exposure/Symptoms: No Physically hurt or threatened: No Family History Family history of heart diseas: No Other Last Tetanus: <10 YRS Any Pre-Existing Lines (PICC,: No Review of Systems Review of Systems Constitutional: Reports no symptoms EENTM: Reports no symptoms Cardiovascular: Reports no symptoms Respiratory: Reports no symptoms Gastrointestinal: Reports no symptoms Genitourinary: Reports as per HPI, Reports other (RIGHT TESTICLE PAIN, NO PE NILE DS/C, MONOGYMOUS/, NO ANAL INTERCOURSE) Musculoskeletal: Reports no symptoms Integumentary: Reports no symptoms Neurological: Reports no symptoms Psychological: Reports no symptoms Endocrine: Reports no symptoms Hematological/Lymphatic: Reports no symptoms Physical Exam Related Data Allergies: Coded Allergies: No Known Allergies (Unverified , 07/16/18) Triage Vital Signs Vital Signs Date Time Temp Pulse Resp B/P (MAP) Pulse Ox O2 Delivery O2 Flow Rate FiO2 04/20/20 11:35 97.9 87 18 143/76 100 Room Air Vital signs reviewed: Yes Physical Exam CONSTITUTIONAL Constitutional: Present well-developed, Present well-nourished HENT HENT: Present normocephalic, Present atraumatic, Present oropharynx clear/moist, Present nose normal HENT L/R: Present left ext ear normal, Present right ext ear normal EYES Eyes: Reports PERRL, Reports conjunctivae normal NECK Neck: Present ROM normal PULMONARY Pulmonary: Present effort normal, Present breath sounds normal CARDIOVASCULAR Cardiovascular: Present regular rhythm, Present heart sounds normal, Present capillary refill normal, Present normal rate GASTROINTESTINAL Abdominal: Present soft, Present nontender, Present bowel sounds normal GENITOURINARY Genitourinary: Present penis normal, Present other (RIGHT TESTICLE NORMAL/NON- TENDER, RIGHT EPIDIDYMIS TTP/SLIGHTLY ENLARGED) SKIN Skin: Present warm, Present dry MUSCULOSKELETAL Musculoskeletal: Present ROM normal NEUROLOGICAL Neurological: Present alert, Present oriented x 3, Present no gross motor or sensory deficits PSYCHOLOGICAL Psychological: Present mood/affect normal, Present judgement normal Results Laboratory Result Diagram: 04/20/20 1200 04/20/20 1200 Laboratory Laboratory Tests Test 04/20/20 12:00 04/20/20 11:45 White Blood Count 7.38 x10e3/uL (4.8-10.8) Red Blood Count 5.12 x10e6/uL (4.3-5.7) Hemoglobin 15.3 g/dL (14.0-18.0) Hematocrit 45.7 % (38.2-49.6) Mean Corpuscular Volume 89.3 fL (81-99) Mean Corpuscular Hemoglobin 29.9 pg (28-32) Mean Corpuscular Hemoglobin Concent 33.5 g/dL (31-35) Red Cell Distribution Width 12.5 % (11.7-14.4) Platelet Count 346 x10e3/uL (140-360) Neutrophils (%) (Auto) 63.6 % (38.7-80.0) Lymphocytes (%) (Auto) 26.4 % (18.0-39.1) Monocytes (%) (Auto) 7.7 % (4.4-11.3) Eosinophils (%) (Auto) 1.2 % (0.0-6.0) Basophils (%) (Auto) 0.7 % (0.0-1.0) Neutrophils # (Auto) 4.7 (2.1-6.9) Lymphocytes # (Auto) 2.0 (1.0-3.2) Monocytes # (Auto) 0.6 (0.2-0.8) Eosinophils # (Auto) 0.1 (0.0-0.4) Basophils # (Auto) 0.1 (0.0-0.1) Absolute Immature Granulocyte (auto 0.03 x10e3/uL (0-0.1) Sodium Level 137 mmol/L (136-145) Potassium Level 3.5 mmol/L (3.5-5.1) Chloride Level 107 mmol/L (98-107) Carbon Dioxide Level 21 mmol/L (22-29) Anion Gap 12.5 mmol/L (8-16) Blood Urea Nitrogen 15 mg/dL (7-26) Creatinine 0.89 mg/dL (0.72-1.25) Estimat Glomerular Filtration Rate > 60 ML/MIN (60-) BUN/Creatinine Ratio 17 (6-25) Glucose Level 147 mg/dL (74-118) Calcium Level 8.8 mg/dL (8.4-10.2) Urine Color Yellow (YELLOW) Urine Clarity Clear (CLEAR) Urine pH 5.5 (5 - 7) Urine Specific [place] >=1.030 (1.010-1.025) Urine Protein Negative (NEGATIVE) Urine Glucose (UA) Negative (NEGATIVE) Urine Ketones Negative (NEGATIVE) Urine Blood Negative (NEGATIVE) Urine Nitrite Negative (NEGATIVE) Urine Bilirubin Negative (NEGATIVE) Urine Urobilinogen 0.2 mg/dL (0.2 - 1) Urine Leukocyte Esterase Negative (NEGATIVE) Urine RBC 0-5 /HPF (0-5) Urine WBC 0-5 /HPF (0-5) Urine Epithelial Cells Few /LPF (NONE) Urine Bacteria Few /HPF (NONE) Urine Mucus Few (RARE) Lab results reviewed: Yes Imaging Imaging results reviewed: Yes Impressions Procedure: [id number] US/US TESTICULAR Exam Date: 04/20/20 Exam Time: 1319 REPORT STATUS: Signed Testicular/scrotal ultrasound CPT code: 65164, 72631 Indication:Right testicular pain/swelling Technique: Multiple static images from testicular ultrasound provided for review. Comparison: No prior studies for comparison. Findings: Right testicle measures 2.0 x 3.1 x 3.7 cm. Epididymal head measures 5 x 7 x 11 mm. The testis is homogeneous in echo texture without mass. Vascular flow documented within. Left testicle measures 1.9 x 2.9 x 3.4 cm. Epididymal head measures 5 x 5 x 7 mm. The testis is homogeneous in echo texture without mass. Vascular flow documented within. Blood flow: Normal color Doppler and spectral Doppler waveforms are present in the testes. Hydroceles: Small right Varicoceles: None IMPRESSION: Small right hydrocele. Normal testes. No evidence of torsion. Signed by: Dr. Mary Villegas MD on 04/20/2020 2:27 PM Assessment & Plan Medical Decision Making MDM REPORTED RIGHT TESTICULAR TENDERNESS BUT BY EXAM HE IS ONLY TENDER OVER EPIDIDYMIS - WILL GET UA/CX, TESTICULAR U/S R/O TORSION. IV ABX'S AND LIKELY DC HOME ON ABX'S Reassessment Reassessment DC HOME, REST. ELEVATE SCROTUM, LEVAQUIN 500 QD X 10 DAYS, F/U DR CANO & DR Krystle HERNANDEZ Assessment & Plan Final Impression: (1) Epididymitis Depart Disposition: HOME, SELF-CARE Last Vital Signs Date Time Temp Pulse Resp B/P (MAP) Pulse Ox O2 Delivery O2 Flow Rate FiO2 04/20/20 11:35 97.9 87 18 143/76 100 Room Air Home Meds Reported Medications Lactobac Cmb #3/Fos/Pantethine (PROBIOTIC & ACIDOPHILUS CAP) 1 Each Capsule, 1 TAB PO DAILY 04/20/20 Esomeprazole Magnesium (NEXIUM) 40 Mg Capsule.dr, 40 MG PO DAILY, CAP PROTONIX THERAPEUTIC SUBSTITUTE FOR NEXIUM PER [facility] 04/20/20 Lisinopril (LISINOPRIL) 2.5 Mg Tablet, PO ONCE, TAB 04/20/20 Medications in the ED Ketorolac Tromethamine 30 mg STK-MED ONCE .ROUTE ; Start 04/20/20 at 12:02; Stop 04/20/20 at 11:55; Status DC Ketorolac Tromethamine 30 mg ONCE STAT IV ; Start 04/20/20 at 11:53; Stop 04/20/20 at 12:05; Status DC Ceftriaxone Sodium 50 ml @ 100 mls/hr ONCE ONCE IV ; Start 04/20/20 at 12:00; Stop 04/20/20 at 12:29; Status DC MICHAEL SALOMON MD Apr 20, 2020 13:09
[2020-04-20] MEDS ORDERED: NEXIUM40 MG PO (13:20)
[2020-04-20] MEDS ORDERED: LISINOPRIL2.5 MG PO (13:20)
[2020-04-20] MEDS ORDERED: PROBIOTIC & AC1 EACH PO (13:20)
--- NOTE | 2020-04-20 14:31 | Diagnostic Imaging Report ---
Testicular/scrotal ultrasound CPT code: 88126, 10377 Indication:Right testicular pain/swelling Technique: Multiple static images from testicular ultrasound provided for review. Comparison: No prior studies for comparison. Findings: Right testicle measures 2.0 x 3.1 x 3.7 cm. Epididymal head measures 5 x 7 x 11 mm. The testis is homogeneous in echo texture without mass. Vascular flow documented within. Left testicle measures 1.9 x 2.9 x 3.4 cm. Epididymal head measures 5 x 5 x 7 mm. The testis is homogeneous in echo texture without mass. Vascular flow documented within. Blood flow: Normal color Doppler and spectral Doppler waveforms are present in the testes. Hydroceles: Small right Varicoceles: None IMPRESSION: Small right hydrocele. Normal testes. No evidence of torsion. Signed by: Dr. Mary Villegas MD on 04/20/2020 2:27 PM
== END 2020-04-20 15:22 | disposition home or self-care (01) ==
LOC: ER 12:07
DX: N50.811 Right testicular pain (principal); N45.1 Epididymitis; I10 Essential (primary) hypertension; K21.9 Gastro-esophageal reflux disease without esophagitis; Z87.442 Personal history of urinary calculi
CPT/HCPCS: 36415; 76870; 80048; 81001; 85025; 87086; 93976; 99283; J0696; J1885

== ENCOUNTER 2020-10-29 08:58 | Emergency (ER) | payer SELFPAY ==
[~2020-10-29] VITALS: Ht 175.3 cm; Wt 79.4 kg
[~2020-10-29 08:58] MED LIST: LISINOPRIL2.5 MG PO; NEXIUM40 MG PO; PROBIOTIC & AC1 EACH PO
[2020-10-29 09:21] LABS: BASOPHILS # (AUTO) 0.1 (0.0-0.1); BASOPHILS % 0.6 % (0.0-1.0); EOSINOPHILS # (AUTO) 0.2 (0.0-0.4); EOSINOPHILS % 1.4 % (0.0-6.0); HEMATOCRIT 58.5 % (38.2-49.6); HEMOGLOBIN 18.6 g/dL (14.0-18.0); LYMPHOCYTES # (AUTO) 1.9 (1.0-3.2); LYMPHOCYTES % 17.4 % (18.0-39.1); MEAN CORPUSCULAR HEMOGLOBIN 28.1 pg (28-32); MEAN CORPUSCULAR HGB CONC 31.8 g/dL (31-35); MEAN CORPUSCULAR VOLUME 88.5 fL (81-99); MONOCYTES # (AUTO) 0.7 (0.2-0.8); NEUTROPHILS # (AUTO) 8.2 (2.1-6.9); NEUTROPHILS % 74.1 % (38.7-80.0); PLATELET COUNT 449 x10e3/uL (140-360); RED BLOOD COUNT 6.61 x10e6/uL (4.3-5.7); RED CELL DISTRIBUTION WIDTH 12.4 % (11.7-14.4)
[2020-10-29 09:57] LABS: ALANINE AMINOTRANSFERASE 98 IU/L (0-55); ALBUMIN 3.9 g/dL (3.5-5.0); ALBUMIN/GLOBULIN RATIO 0.9 (0.8-2.0); ALKALINE PHOSPHATASE 61 IU/L (40-150); ANION GAP 15.8 mmol/L (8-16); BLOOD UREA NITROGEN 16 mg/dL (7-26); BUN/CREATININE RATIO 15 (6-25); CALCIUM 9.5 mg/dL (8.4-10.2); CARBON DIOXIDE 23 mmol/L (22-29); CHLORIDE 102 mmol/L (98-107); EST GLOMERULAR FILTRATION RATE > 60 ML/MIN (60-); GLUCOSE 137 mg/dL (74-118); POTASSIUM 4.8 mmol/L (3.5-5.1); SODIUM 136 mmol/L (136-145)
== END 2020-10-29 11:04 | disposition home or self-care (01) ==
LOC: ER 09:52
DX: I10 Essential (primary) hypertension (principal); R07.89 Other chest pain; K21.9 Gastro-esophageal reflux disease without esophagitis; Z87.442 Personal history of urinary calculi
CPT/HCPCS: 36415; 71046; 80053; 83690; 84484; 85025; 93005; 99284

== ENCOUNTER 2023-12-31 09:40 | Emergency (ER) | payer SELFPAY ==
[~2023-12-31] VITALS: Ht 175.3 cm; Wt 81.6 kg
[2023-12-31 10:02] VITALS: TEMP 98.5
[2023-12-31 10:34] LABS: COLOR,URINE YELLOW (YELLOW)
[2023-12-31 10:35] LABS: BACTERIA,URINE FEW /HPF; BILIRUBIN,URINE NEGATIVE (NEGATIVE); CLARITY,URINE CLEAR (CLEAR); EPITHELIAL CELLS,URINE FEW /LPF; GLUCOSE, URINE NEGATIVE (NEGATIVE); KETONES,URINE NEGATIVE (NEGATIVE); LEUKOCYTE ESTERASE ,URINE NEGATIVE (NEGATIVE); NITRITE,URINE NEGATIVE (NEGATIVE); PH,URINE 6 (5 - 7); PROTEIN,URINE DIPSTICK NEGATIVE (NEGATIVE); RBC,URINE 21-50 /HPF (0-5); URINE UROBILINOGEN 0.2 mg/dL (0.2 - 1)
[2023-12-31] MEDS: KETOROLAC TROMETHAMINE 30 MG/ML VIAL IV STA ×2 (10:41→13:13)
[2023-12-31 10:51] LABS: BASOPHILS % 0.4 % (0.0-1.0); EOSINOPHILS % 0.4 % (0.0-6.0); HEMATOCRIT 51.9 % (38.2-49.6); HEMOGLOBIN 17.1 g/dL (14.0-18.0); LYMPHOCYTES % 11.9 % (18.0-39.1); MEAN CORPUSCULAR HEMOGLOBIN 29.9 pg (28-32); MEAN CORPUSCULAR HGB CONC 32.9 g/dL (31-35); MEAN CORPUSCULAR VOLUME 90.7 fL (81-99); MONOCYTES % 6.9 % (4.4-11.3); NEUTROPHILS # (AUTO) 12.2 (2.1-6.9); NEUTROPHILS % 79.9 % (38.7-80.0); PLATELET COUNT 354 x10e3/uL (140-360); RED BLOOD COUNT 5.72 x10e6/uL (4.3-5.7); RED CELL DISTRIBUTION WIDTH 12.1 % (11.7-14.4); WHITE BLOOD COUNT 15.28 x10e3/uL (4.8-10.8)
[2023-12-31 10:52] LABS: BASOPHILS # (AUTO) 0.1 (0.0-0.1); EOSINOPHILS # (AUTO) 0.1 (0.0-0.4); LYMPHOCYTES # (AUTO) 1.8 (1.0-3.2); MONOCYTES # (AUTO) 1.1 (0.2-0.8)
[2023-12-31] MEDS: ONDANSETRON HCL INJ 2MG/ML 2ML 2 MG/ML VIAL IV STA (11:21)
[2023-12-31] MEDS: Morphine 4mg INJECTION 4 MG/ML INJ IV ONE ×2 (11:22→13:14)
[2023-12-31] MEDS: SODIUM CHLORIDE 0.9% 1000ML 1,000 ML IV ONE (11:22)
[2023-12-31 11:23] LABS: ANION GAP 18.3 mmol/L (8-16); CALCIUM 9.2 mg/dL (8.4-10.2); CREATININE, SERUM 1.13 mg/dL (0.72-1.25); POTASSIUM 4.3 mmol/L (3.5-5.1)
[2023-12-31 12:03] VITALS: PULSE 68; RESP 16
[2023-12-31] MEDS ORDERED: ULTRAM 50MG50 MG PO (12:28)
[2023-12-31] MEDS ORDERED: ONDANSETRON ODT4 MG PO (12:30)
[2023-12-31] MEDS ORDERED: FLOMAX0.4 MG PO (12:31)
[2023-12-31 13:15] VITALS: BP 130/89; PULSE 69; RESP 18; TEMP 98.5; O2SAT 98
[2023-12-31] MEDS ORDERED: Morphine 4mg INJECTION 4 MG/ML INJ ONE (13:15)
[2023-12-31] MEDS ORDERED: KETOROLAC TROMETHAMINE 30 MG/ML VIAL ONE (13:16)
== END 2023-12-31 13:19 | disposition home or self-care (01) ==
LOC: ER 10:20
DX: R11.2 Nausea with vomiting, unspecified (principal); R10.30 Lower abdominal pain, unspecified; N50.811 Right testicular pain; I10 Essential (primary) hypertension; K21.9 Gastro-esophageal reflux disease without esophagitis; Z87.442 Personal history of urinary calculi
CPT/HCPCS: 36415; 74176; 80048; 81001; 85025; 99284; J1885; J2270; J2405; J7030

== ENCOUNTER 2024-01-05 09:29 | Emergency (ER) | payer SELFPAY ==
[~2024-01-05] VITALS: Ht 175.3 cm; Wt 81.6 kg
[~2024-01-05 09:29] MED LIST changes: +FLOMAX0.4 MG PO; +ONDANSETRON ODT4 MG PO; +ULTRAM 50MG50 MG PO
[2024-01-05 10:00] VITALS: PULSE 78; RESP 18; TEMP 97.4; O2SAT 98
[2024-01-05 11:04] LABS: BASOPHILS # (AUTO) 0.1 (0.0-0.1); BASOPHILS % 0.8 % (0.0-1.0); EOSINOPHILS # (AUTO) 0.2 (0.0-0.4); EOSINOPHILS % 2.2 % (0.0-6.0); HEMATOCRIT 49.2 % (38.2-49.6); HEMOGLOBIN 15.9 g/dL (14.0-18.0); LYMPHOCYTES # (AUTO) 1.9 (1.0-3.2); LYMPHOCYTES % 20.2 % (18.0-39.1); MEAN CORPUSCULAR HEMOGLOBIN 29.3 pg (28-32); MEAN CORPUSCULAR HGB CONC 32.3 g/dL (31-35); MEAN CORPUSCULAR VOLUME 90.6 fL (81-99); MONOCYTES # (AUTO) 0.8 (0.2-0.8); MONOCYTES % 8.4 % (4.4-11.3); NEUTROPHILS # (AUTO) 6.3 (2.1-6.9); NEUTROPHILS % 68.1 % (38.7-80.0); PLATELET COUNT 342 x10e3/uL (140-360); RED BLOOD COUNT 5.43 x10e6/uL (4.3-5.7); RED CELL DISTRIBUTION WIDTH 12.5 % (11.7-14.4); WHITE BLOOD COUNT 9.18 x10e3/uL (4.8-10.8)
[2024-01-05] MEDS: FENTANYL CITRATE/PF 100MCG/2 ML INJ IV PRN (11:21)
[2024-01-05 11:28] LABS: ANION GAP 11.5 mmol/L (8-16); CALCIUM 8.9 mg/dL (8.4-10.2); CREATININE, SERUM 0.97 mg/dL (0.72-1.25); POTASSIUM 4.5 mmol/L (3.5-5.1)
[2024-01-05 12:04] LABS: BILIRUBIN,URINE NEGATIVE (NEGATIVE); CLARITY,URINE CLEAR (CLEAR); COLOR,URINE YELLOW (YELLOW); GLUCOSE, URINE NEGATIVE (NEGATIVE); KETONES,URINE NEGATIVE (NEGATIVE); LEUKOCYTE ESTERASE ,URINE NEGATIVE (NEGATIVE); NITRITE,URINE NEGATIVE (NEGATIVE); PH,URINE 7 (5 - 7); PROTEIN,URINE DIPSTICK NEGATIVE (NEGATIVE); URINE UROBILINOGEN 0.2 mg/dL (0.2 - 1)
[2024-01-05 12:20] LABS: BACTERIA,URINE RARE /HPF; EPITHELIAL CELLS,URINE RARE /LPF; WBC,URINE (MAN) 0-5 /HPF (0-5)
[2024-01-05] MEDS ORDERED: HYDROCODON-ACE1 EA12 PO (12:27)
[2024-01-05] MEDS: HYDROCODONE/APAP 10MG-325MG TAB PO ONE (12:41)
== END 2024-01-05 12:46 | disposition home or self-care (01) ==
LOC: ER 09:37
DX: R11.2 Nausea with vomiting, unspecified (principal); N20.2 Calculus of kidney with calculus of ureter; R31.9 Hematuria, unspecified; M54.50 Low back pain, unspecified; I10 Essential (primary) hypertension; K21.9 Gastro-esophageal reflux disease without esophagitis
CPT/HCPCS: 36415; 74018; 80048; 81001; 85025; 99284; J3010

== ENCOUNTER 2024-07-06 09:20 | Emergency (ER) | payer SELFPAY ==
[~2024-07-06] VITALS: Ht 175.3 cm; Wt 88.5 kg
[2024-07-06 09:20] VITALS: TEMP 98.1
[~2024-07-06 09:20] MED LIST changes: +HYDROCODON-ACE1 EA12 PO
[2024-07-06 10:06] LABS: BASOPHILS # (AUTO) 0.1 (0.0-0.1); EOSINOPHILS # (AUTO) 0.1 (0.0-0.4); EOSINOPHILS % 1.3 % (0.0-6.0); HEMATOCRIT 50.9 % (38.2-49.6); HEMOGLOBIN 14.7 g/dL (14.0-18.0); LYMPHOCYTES # (AUTO) 2.4 (1.0-3.2); LYMPHOCYTES % 27.9 % (18.0-39.1); MEAN CORPUSCULAR HEMOGLOBIN 23.5 pg (28-32); MEAN CORPUSCULAR HGB CONC 28.9 g/dL (31-35); MEAN CORPUSCULAR VOLUME 81.3 fL (81-99); MONOCYTES # (AUTO) 0.8 (0.2-0.8); MONOCYTES % 9.4 % (4.4-11.3); NEUTROPHILS # (AUTO) 5.2 (2.1-6.9); NEUTROPHILS % 60.1 % (38.7-80.0); PLATELET COUNT 481 x10e3/uL (140-360); RED BLOOD COUNT 6.26 x10e6/uL (4.3-5.7); RED CELL DISTRIBUTION WIDTH 15.3 % (11.7-14.4); WHITE BLOOD COUNT 8.65 x10e3/uL (4.8-10.8)
[2024-07-06] MEDS: SODIUM CHLORIDE 0.9% 1000ML 1,000 ML IV STA (10:11)
[2024-07-06] MEDS: KETOROLAC TROMETHAMINE 30 MG/ML VIAL IV STA (10:13)
[2024-07-06 10:22] LABS: ALBUMIN 3.9 g/dL (3.5-5.0); ALBUMIN/GLOBULIN RATIO 1.3 (0.8-2.0); ANION GAP 14.4 mmol/L (8-16); BILIRUBIN,TOTAL 0.7 mg/dL (0.2-1.2); CALCIUM 9.1 mg/dL (8.4-10.2); CREATININE, SERUM 1.08 mg/dL (0.72-1.25); POTASSIUM 4.4 mmol/L (3.5-5.1); TOTAL PROTEIN 6.8 g/dL (6.5-8.1)
[2024-07-06 10:33] LABS: INR 0.91; PROTHROMBIN TIME 12.8 seconds (11.9-14.5)
[2024-07-06 10:56] LABS: PARTIAL THROMBOPLASTIN TIME 29.6 seconds (23.8-35.5)
[2024-07-06 11:15] VITALS: PULSE 68; RESP 18; O2SAT 94
== END 2024-07-06 11:15 | disposition home or self-care (01) ==
LOC: ER 09:37
DX: R00.2 Palpitations (principal); R07.89 Other chest pain; I10 Essential (primary) hypertension; K21.9 Gastro-esophageal reflux disease without esophagitis; Z87.442 Personal history of urinary calculi
CPT/HCPCS: 36415; 71045; 80053; 84484; 85025; 85379; 85610; 85730; 93005; 99283; J1885; J2470; J7030